=== PATIENT | male | born 1955 | race Asian ===

== ENCOUNTER 2020-02-08 09:43 | Emergency (ER) | payer OTHER, SELFPAY ==
--- NOTE | 2020-02-08 | ECG_ITS ---
Test Reason : NAUSEA/VOMITING Blood Pressure : / mmHG Vent. Rate : 059 BPM Atrial Rate : 059 BPM P-R Int : 136 ms QRS Dur : 092 ms QT Int : 416 ms P-R-T Axes : 058 066 004 degrees QTc Int : 411 ms Sinus bradycardia Nonspecific ST abnormality Abnormal ECG No previous ECGs available Referred By: Janell Garcia Electronically Signed By:George Braga
--- NOTE | 2020-02-08 10:47 | ED_ITS ---
HPI - Nausea/Vomiting/Diarrhea General Time Seen by Provider: 02/08/20 10:47 Source: patient and EMS Mode of arrival: EMS Limitations: no limitations History of Present Illness MD elicited complaint: nausea, vomiting and diarrhea Onset (ago): day(s) (last night) Description of vomiting: food contents and watery Description of diarrhea: watery Associated nausea: Yes Associated abdominal pain: No Pain consistency: constant Severity: similar to previous episodes Exacerbating factors: none Relieving factors: none Context: other (started Prep to prevent HIV transmission after taking dose started with n/v/d has hx of sensitivity to meds in the past) Associated symptoms: denies other symptoms Treatment prior to arrival: other (EMS gave zofran) Related Data Previous Rx's Medication Instructions Recorded ondansetron 4 mg PO Q8H PRN #20 tab 02/08/20 promethazine 25 mg MD Q6H PRN #12 ea 02/08/20 Allergies Allergy/AdvReac Type Severity Reaction Status Date / Time diclofenac [DICLOFENAC] Allergy Unknown STOMACH Unverified 11/10/19 15:03 PAIN Review of Systems Review of Systems: Constitutional : No Weight loss, No Fever, No Chills ENT/Mouth : No sore throat, No Rhinorrhea Eyes: No Swelling, No Redness Cardiovascular : No Chest Pain, No SOB, NoEdema Respiratory : No Cough, No Sputum, No Wheezing Gastrointestinal : Positive Nausea, Positive Vomiting, positive Diarrhea, no abdominal Pain, No Hematochezia, No Melena Genitourinary : No Dysuria, No Urinary Frequency, No Hematuria, No Urgency Musculoskeletal : No joint pain, No Myalgias, No Joint Swelling Skin : No Skin Lesions, No rash Neuro : No Weakness, No Numbness, No Dizziness, No Headache Psych : No Anxiety/Panic, No Depression Heme/Lymph: No Bruising, No Lymphadenopathy Endocrine : No Polyuria, No Polydipsia All other systems reviewed and are negative. Gastrointestinal: Gastrointestinal: Reports nausea PMFSH Past Medical History Attestation statement: The following information was validated with the patient. Medical History (Updated 02/08/20 @ 12:45 by Janell Garcia DO) GERD (gastroesophageal reflux disease) HTN (hypertension) Hyperlipidemia Social History Social History (Updated 02/08/20 @ 10:49 by Janell Garcia DO) Smoking Status: Never smoker Use of substances other than those prescribed or required for medical reasons: No Advance Directives: No Advance Directives Information Provided: Yes Physical Exam Vital Signs: Vital Signs: Last Vital Signs Pulse 85 02/08/20 12:24 Resp 16 02/08/20 12:24 BP 140/78 H 02/08/20 12:24 Pulse Ox 95 02/08/20 12:24 Appearance: Alert. Oriented X3. No acute distress. Eyes: Pupils equal, round and reactive to light. ENT: Pharynx normal. Neck: Normal inspection. Neck supple. CVS: Normal heart rate and rhythm. Pulses normal. Respiratory: No respiratory distress. Breath sounds normal. Abdomen: Soft and nontender. Skin: Skin warm and dry. Normal skin color. Normal skin turgor. Extremities: No lower extremity edema. No calf ttp Neuro: Oriented X 3. No motor deficit. No sensory deficit. Course Course Course Narrative: feels better, VS and labs stable, can be DC at this time MDM - Nausea/Vomiting/Diarrhea MDM Narrative Medical decision making narrative: 65 yo male started himself on Prep to prevent HIV transmission after taking his first dose developed n/v/d no pain, hx of similar sensitivities in the past, will need labs, IVF, IV antiemetics, dispo per results and findings. Lab Data Result diagrams: 02/08/20 10:35 02/08/20 10:35 Labs: Lab Results 02/08/20 02/08/20 02/08/20 Range/Units 10:35 10:35 10:35 WBC 8.5 (4.8-10.8) X10*3/uL RBC 4.74 (4.60-5.80) X10*6/uL Hgb 14.5 (14.0-18.0) g/dl Hct 42.5 (42-52) % MCV 89.7 (80-98) fL MCH 30.6 (27.0-33.0) pg MCHC 34.1 (31.0-36.0) g/dl RDW 12.7 (11.0-16.0) % Plt Count 200 (160-400) X10*3/uL MPV 10.5 (9.4-12.4) fL Immature Gran % (Auto) 0.4 (0.0-0.4) % Neut % (Auto) 88.0 H (45-73) % Lymph % (Auto) 8.0 L (20-40) % Trinity % (Auto) 2.9 (2-11) % Eos % (Auto) 0.2 (0-4) % Baso % (Auto) 0.5 (0-2) % Lymph # (Auto) 0.7 L (1.2-4.9) X10*3/uL Trinity # (Auto) 0.3 (0.1-1.2) X10*3/uL Eos # (Auto) 0.0 (0.0-0.4) X10*3/uL Baso # (Auto) 0.0 (0.0-0.2) X10*3/uL Abs Immat Gran (auto) 0.03 (0.00-0.03) X10*3/uL Absolute Neuts (auto) 7.5 (2.0-8.3) X10*3/uL Absolute Nucleated RBC 0.000 (0.0-0.012) X10*3/uL Nucleated RBC % (auto) 0.0 (0.0-0.2) /100WBC Smear Tech's Comments VERIFIED PT (10.8-13.0) SEC INR (0.9-1.1) APTT (24.1-38.0) SEC Sodium 140 (135-145) mmol/L Potassium 4.1 (3.3-5.1) mmol/l Chloride 106 (96-108) mmol/L Carbon Dioxide 27 (22-29) mmol/L Anion Gap 11 L (12-20) BUN 17 H (9-16) mg/dL Creatinine 0.80 (0.5-1.4) mg/dL Estim Creat Clear Calc TNP Estimated GFR > 60 Random Glucose 149 H (60-115) mg/dL Calcium 8.6 (8.4-10.2) mg/dL Total Bilirubin 0.8 (0.0-1.0) mg/dL Direct Bilirubin 0.3 (0.0-0.5) mg/dL AST 18 (5-37) U/L ALT 20 (0-40) U/L Alkaline Phosphatase 57 (39-117) U/L Total Protein 6.2 L (6.5-8.0) g/dL Albumin 4.3 (3.5-5.0) g/dL Lipoprotein (a) Cancelled Lipase 17 (8-78) U/L /16/20 Range/Units 10:35 WBC (4.8-10.8) X10*3/uL RBC (4.60-5.80) X10*6/uL Hgb (14.0-18.0) g/dl Hct (42-52) % MCV (80-98) fL MCH (27.0-33.0) pg MCHC (31.0-36.0) g/dl RDW (11.0-16.0) % Plt Count (160-400) X10*3/uL MPV (9.4-12.4) fL Immature Gran % (Auto) (0.0-0.4) % Neut % (Auto) (45-73) % Lymph % (Auto) (20-40) % Trinity % (Auto) (2-11) % Eos % (Auto) (0-4) % Baso % (Auto) (0-2) % Lymph # (Auto) (1.2-4.9) X10*3/uL Trinity # (Auto) (0.1-1.2) X10*3/uL Eos # (Auto) (0.0-0.4) X10*3/uL Baso # (Auto) (0.0-0.2) X10*3/uL Abs Immat Gran (auto) (0.00-0.03) X10*3/uL Absolute Neuts (auto) (2.0-8.3) X10*3/uL Absolute Nucleated RBC (0.0-0.012) X10*3/uL Nucleated RBC % (auto) (0.0-0.2) /100WBC Smear Tech's Comments PT 11.7 (10.8-13.0) SEC INR 1.0 (0.9-1.1) APTT 25.6 (24.1-38.0) SEC Sodium (135-145) mmol/L Potassium (3.3-5.1) mmol/l Chloride (96-108) mmol/L Carbon Dioxide (22-29) mmol/L Anion Gap (12-20) BUN (9-16) mg/dL Creatinine (0.5-1.4) mg/dL Estim Creat Clear Calc Estimated GFR Random Glucose (60-115) mg/dL Calcium (8.4-10.2) mg/dL Total Bilirubin (0.0-1.0) mg/dL Direct Bilirubin (0.0-0.5) mg/dL AST (5-37) U/L ALT (0-40) U/L Alkaline Phosphatase (39-117) U/L Total Protein (6.5-8.0) g/dL Albumin (3.5-5.0) g/dL Lipoprotein (a) Lipase (8-78) U/L ECG Data Attestation: I personally reviewed and interpreted this ECG as follows: ECG interpretation date: 02/08/20 ECG interpretation time: 10:52 Interpretation: Rate: 59 Rhythm: sinus bradycardia [place] [facility]: normal Normal P waves. Normal KIMANI. Normal QRS complex. ST T wave : nonspecific, no SERENE qTC: normal prior studies: no acute ischemia The study has been interpreted contemporaneously by me. . Discharge Plan Discharge Clinical Impression: Vomiting and diarrhea Patient Disposition: Home, Self-Care Instructions: Acute Nausea and Vomiting (ED), Acute Diarrhea (ED) Additional Instructions: return to ED for any worsening symptoms or concerns STOP taking PREP please talk to your doctor first Prescriptions: New promethazine 25 mg suppository 25 mg MD Q6H PRN (Reason: nausea and vomiting) Qty: 12 RF: 0 ondansetron 4 mg tablet,disintegrating 4 mg PO Q8H PRN (Reason: nausea and vomiting) Qty: 20 RF: 0 Referrals: Physician,Unknown [Primary Care Provider] - 1 day
--- NOTE | 2020-02-08 11:05 | PC.NURSE ---
pt was seen and treated during Expanse down time. Please see paper documentation for treatment details.
[2020-02-08 11:09] LABS: Basophils Percent Auto 0.5 % (0-2); Eosinophils Percent Auto 0.2 % (0-4); Hematocrit 42.5 % (42-52); Hemoglobin 14.5 g/dl (14.0-18.0); Imm Gran Abs Auto 0.03 X10*3/uL (0.00-0.03); Imm Gran Pct Auto 0.4 % (0.0-0.4); Lymphocytes Absolute Auto 0.7 X10*3/uL (1.2-4.9); MANUAL DIFF FLAG SCAN; Mean Corpuscular HGB Conc 34.1 g/dl (31.0-36.0); Mean Corpuscular Hemoglobin 30.6 pg (27.0-33.0); Mean Corpuscular Volume 89.7 fL (80-98); Mean Platelet Volume 10.5 fL (9.4-12.4); Monocytes Absolute Auto 0.3 X10*3/uL (0.1-1.2); Monocytes Percent Auto 2.9 % (2-11); Neutrophils Absolute Auto 7.5 X10*3/uL (2.0-8.3); Platelet Count 200 X10*3/uL (160-400); Red Blood Count 4.74 X10*6/uL (4.60-5.80); Red Cell Distribution Width 12.7 % (11.0-16.0); SCAN SMEAR FLAG 1; White Blood Count 8.5 X10*3/uL (4.8-10.8)
[2020-02-08 11:18] LABS: Prothrombin Time 11.7 SEC (10.8-13.0)
[2020-02-08 11:21] LABS: Partial Thromboplastin Time 25.6 SEC (24.1-38.0)
[2020-02-08 11:35] LABS: Alanine Aminotransferase 20 U/L (0-40); Albumin Level 4.3 g/dL (3.5-5.0); Alkaline Phosphatase 57 U/L (39-117); Anion Gap 11 (12-20); Aspartate Amino Transferase 18 U/L (5-37); Bilirubin Direct 0.3 mg/dL (0.0-0.5); Bilirubin Total 0.8 mg/dL (0.0-1.0); Blood Urea Nitrogen 17 mg/dL (9-16); Calcium 8.6 mg/dL (8.4-10.2); Carbon Dioxide 27 mmol/L (22-29); Chloride 106 mmol/L (96-108); Estimated Glomerular Filt Rate > 60; Glucose Random 149 mg/dL (60-115); Lipase 17 U/L (8-78); Potassium 4.1 mmol/l (3.3-5.1); Sodium 140 mmol/L (135-145); Total Protein 6.2 g/dL (6.5-8.0)
[2020-02-08 11:57] LABS: SLIDE REVIEW VERIFIED
[2020-02-08 12:24] VITALS: BP 140/78; PULSE 85; RESP 16; O2SAT 95
--- NOTE | 2020-02-08 12:25 | PC.NURSE ---
pt resting quietly, states nausea has improved. Tolerating PO fluid.
[2020-02-08 13:18] VITALS: BP 158/108; PULSE 87; RESP 16; O2SAT 100
--- NOTE | 2020-02-08 13:24 | PC.NURSE ---
pt states nausea is well controlled, he has been resting quietly in no distress.
[2020-02-09 08:53] VITALS: BMI 30.1
== END 2020-02-08 13:24 | disposition home or self-care (01) ==
PROVIDERS: Emergency Provider Emergency Medicine
DX: R11.2 Nausea with vomiting, unspecified (principal); R19.7 Diarrhea, unspecified; I10 Essential (primary) hypertension
CPT/HCPCS: 36415; 80048; 80076; 83690; 85025; 85610; 85730; 87086; 93005; 99281; 99283

== ENCOUNTER 2021-05-31 08:22 | Day surgery (SDC) | payer MEDICARE, MEDICAID, SELFPAY ==
[2021-05-27 11:07] VITALS: BMI 23.8
--- NOTE | 2021-05-30 10:58 | HO.ANESPROP2 ---
Documented by User: Maria Esther Ruiz NP 05/30/21 10:58 HPI - Anesthesia Eval Consult details Narrative: 66yo M for ?Upper Endoscopy [facility] Past Medical History Medical History (Updated 05/27/21 @ 11:03 by Robina Gonzalez RN) Anxiety GERD (gastroesophageal reflux disease) HTN (hypertension) Hyperlipidemia Surgical History Surgical History (Updated 05/27/21 @ 11:03 by Robina Gonzalez RN) H/O colonoscopy History of ear surgery History of esophagogastroduodenoscopy (EGD) Hx of varicose vein ligation and stripping Social History Social History (Updated 02/08/20 @ 10:49 by Janell Garcia DO) Patient Tobacco Use Status: Never used Tobacco Use of substances other than those prescribed or required for medical reasons: No Are you DNR?: No Advance Directives: No Advance Directives Information Provided: Yes Recently lost weight without trying: No How much weight loss: 14-23 pounds Nutrition Risks: No Nutritional Risk Meds Allergies Allergy/AdvReac Type Severity Reaction Status Date / Time diclofenac [DICLOFENAC] Allergy Unknown STOMACH Verified 05/31/21 08:36 PAIN Home Medications Medication Instructions Recorded Confirmed Last Taken Type amlodipine 5 mg tablet 1 tab PO DAILY 05/27/21 05/27/21 05/31/21 History atenolol 50 mg tablet 1 tab PO DAILY 05/27/21 05/27/21 05/31/21 History lisinopril 20 mg tablet 1 tab PO QAM 05/27/21 05/27/21 Unknown History pantoprazole 40 mg tablet,delayed 1 tab PO DAILY 05/27/21 05/27/21 Unknown History release Exam Exam Date and Time: May 30, 2021 1058 Height,Weight and Vital Signs: Height 5 ft 10.5 in Weight 76.204 kg Assessment and Plan Assessment Anesthesia Assessment: Chart Reviewed Documented by User: Reymundo Blake MD 05/31/21 09:56 HPI - Anesthesia Eval Consult details Narrative: 66yo M for ?Upper Endoscopy occasional nausea PMFSH Past Medical History Medical History (Updated 05/27/21 @ 11:03 by Robina Gonzalez RN) Anxiety GERD (gastroesophageal reflux disease) HTN (hypertension) Hyperlipidemia Functional capacity: independent ambulation Family History Family history of problems with anesthesia: No Surgical History Surgical History (Updated 05/27/21 @ 11:03 by Robina Gonzalez RN) H/O colonoscopy History of ear surgery History of esophagogastroduodenoscopy (EGD) Hx of varicose vein ligation and stripping History of Problems with Anesthesia: No Social History Social History (Updated 02/08/20 @ 10:49 by Janell Garcia DO) Patient Tobacco Use Status: Never used Tobacco Use of substances other than those prescribed or required for medical reasons: No Are you DNR?: No Advance Directives: No Advance Directives Information Provided: Yes Recently lost weight without trying: No How much weight loss: 14-23 pounds Nutrition Risks: No Nutritional Risk Meds Allergies Allergy/AdvReac Type Severity Reaction Status Date / Time diclofenac [DICLOFENAC] Allergy Unknown STOMACH Verified 05/31/21 08:36 PAIN Home Medications Medication Instructions Recorded Confirmed Last Taken Type amlodipine 5 mg tablet 1 tab PO DAILY 05/27/21 05/27/21 05/31/21 History atenolol 50 mg tablet 1 tab PO DAILY 05/27/21 05/27/21 05/31/21 History lisinopril 20 mg tablet 1 tab PO QAM 05/27/21 05/27/21 Unknown History pantoprazole 40 mg tablet,delayed 1 tab PO DAILY 05/27/21 05/27/21 Unknown History release Exam Airway Mallampati Class: II TM Dist: >3cm Partial: Upper Loose/Missing/Broken Teeth: Yes Heart: RRR Lungs: B/L breath sounds Assessment and Plan Assessment Anesthesia Assessment: Anesthesia Plan Discussed Final Anesthetic Review Family History of Problems with Anesthesia: No History of Problems with Anesthesia: No NPO: Yes ASA Class: II Final Preanesthetic Review: Meds/Allgs Chart Reviewed, Consent Obtained/Reviewed and Anes Risks/Benef Reviewed Patient Risk: Intermediate Procedure Risk: Intermediate Anesthetic Plan Anesthetic Plan: MAC: Disposition: Standard PACU
[2021-05-31 08:31] VITALS: BMI 23.3
[2021-05-31 08:41] VITALS: BP 143/77; PULSE 61; RESP 16; TEMP 36.4; O2SAT 95
[2021-05-31] MEDS: Lactated Ringers 1,000 ML 100 ML IVCONT (08:50)
--- NOTE | 2021-05-31 09:48 | MHC.SHP ---
Pre-Procedural Eval Section A Date of Service: 05/31/21 Section B Chief Complaint: Acute Gastritis, Abnormal findings Details of Present Illness: see holder nd p no chnges Relevant Family History (Specify if Yes): No Relevant Social History: None Present Medications: None Medical History: No relevant PMH History of Previous Operations: No relevant previous surgery Allergies: Allergies Allergy/AdvReac Type Severity Reaction Status Date / Time diclofenac [DICLOFENAC] Allergy Unknown STOMACH Verified 05/31/21 08:36 PAIN Review of Systems Sugical H&P ROS: Negative: Constitution, Cardiovascular, Respiratory, Neurological, Psychiatric, Hem-Onc, Allergic/Immunologic, Gastrointestinal, Genitourinary, Musculoskeletal, Integumentary, Endocrine and Eyes/Ears/Nose/Throat Exam Surgical H&P Exam: Normal: HEENT, Normal: Heart, Normal: Lungs, Normal: Extremities, Normal: Abdomen, Normal: Skin and Normal: Neurological Plan I have reviewed the history and physical and performed a pertinent physical examination on my patient. No changes have occurred unless specified.
[2021-05-31 10:12] VITALS: BP 82/42; PULSE 56; RESP 16; TEMP 36.7; O2SAT 94
--- NOTE | 2021-05-31 10:18 | PM.OP ---
Brief Operative Note Date of Service: 05/31/21 Pre-op diagnosis: abnl ct scan Post-op diagnosis: same Procedure: egd Surgeon: Estevan Garcia Anesthesia: MAC Was an Senior Financial Analyst used for this Procedure?: No Estimated blood loss (mL): 2 Pathology: other Condition: stable Disposition: PACU
[2021-05-31 10:27] VITALS: BP 125/78; PULSE 52; RESP 18; TEMP 36.3; O2SAT 96
--- NOTE | 2021-05-31 11:17 | OP_ITS ---
SURGEON: Estevan Garcia MD INDICATIONS: Abnormal CT scan of the stomach. PREOPERATIVE DIAGNOSIS: POSTOPERATIVE DIAGNOSIS: PROCEDURE PERFORMED: Upper endoscopy with biopsy. ESTIMATED BLOOD LOSS: COMPLICATIONS: ANESTHESIA: Monitored anesthesia care. ASSISTANTS: SPECIMENS: DESCRIPTION OF PROCEDURE: History and physical performed. The risks and benefits of the procedure were explained to the patient. Informed consent was obtained. The patient was placed in the left lateral decubitus position. The Olympus video gastroscope was introduced into the esophagus, stomach, and duodenum. Examination was performed. The scope was removed. He tolerated the procedure well and was taken to recovery in stable condition. FINDINGS: Esophagus: The esophagus was normal. The EG junction was irregular. This was biopsied. Stomach: Showed no ulcers or mass lesions. Biopsies were obtained from the fundus where the mucosa appeared normal. Biopsies were also obtained from the antrum. Duodenum: The bulb and second portion were normal. IMPRESSION: Normal upper endoscopy. RECOMMENDATION: Follow up the biopsy results. MD NAHEED Goldstein/MODL / [id number] MTDD
== END 2021-05-31 11:50 | disposition home or self-care (01) ==
PROVIDERS: PCP Internal Medicine; Visit Provider Internal Medicine Gastroenterology
PROC: 0DJ08ZZ Inspection of Upper Intestinal Tract, Via Natural or Artificial Opening Endoscopic (ICD-10-PCS; CPT 43235; principal; 2021-05-31 09:40)
DX: K29.50 Unspecified chronic gastritis without bleeding (principal); I10 Essential (primary) hypertension; E78.5 Hyperlipidemia, unspecified; F41.1 Generalized anxiety disorder; Z79.899 Other long term (current) drug therapy
CPT/HCPCS: 43239; 88305; 88342; J3010

== ENCOUNTER 2022-02-21 13:55 | Outpatient (REF) | payer MEDICARE, MEDICAID, SELFPAY | END 2022-02-21 13:56 | disposition home or self-care (01) | LOC: HO.SH 13:55 | PROVIDERS: Visit Provider Family Medicine | DX: Z01.118 Encounter for examination of ears and hearing with other abnormal findings (principal); H90.6 Mixed conductive and sensorineural hearing loss, bilateral; H69.93 Unspecified Eustachian tube disorder, bilateral | CPT/HCPCS: 92557; 92567 ==

== ENCOUNTER 2022-03-10 07:59 | Outpatient (REF) | payer MEDICARE, MEDICAID, SELFPAY ==
--- NOTE | ~2022-03-10 | US_ITS ---
EXAMINATION: US ABDOMEN COMPLETE CLINICAL INFORMATION: Epigastric pain. COMPARISON: CT abdomen and pelvis with contrast 01/05/2017. TECHNIQUE: Real-time imaging of the abdominal viscera. FINDINGS: PANCREAS: Normal. ABDOMINAL AORTA: The proximal abdominal aorta is normal caliber. The mid and distal abdominal aorta is not seen. INFERIOR VENA CAVA: Visualized portions are normal. LIVER: The liver is normal in size. The liver contour is normal. Parenchymal echogenicity is normal. There are 3 anechoic cysts with the largest cyst right hepatic lobe measures 0.9 x 1.10 x 1.2 cm. There is no intrahepatic biliary duct dilatation seen. GALLBLADDER: There are small nonmobile echogenic lesions along the inner gallbladder wall suggestive of polyps. The gallbladder is physiologically distended without evidence of stones, sludge, wall thickening or pericholecystic fluid. COMMON BILE DUCT: Normal in caliber measuring 0.7 cm in diameter. RIGHT KIDNEY: There are numerous cysts in the right kidney. The largest in the midpole measures 1.5 x 1.1 x 1.2 cm. No hydronephrosis or renal calculi. The kidney measures 12.3 cm in maximum dimension. LEFT KIDNEY: There are punctate echogenic foci in lower pole measuring 0.2 x 0.1 x 0.26 cm. There are numerous cysts seen. Largest measuring 1.3 x 0.6 x 0.6 cm in midpole. No hydronephrosis or renal calculi. The kidney measures 10.5 cm in maximum dimension. SPLEEN: Normal. The spleen measures 12.2 cm in maximum dimension. FREE FLUID: None. US/US abdomen complete IMPRESSION: 1. Bilateral renal cysts. No echogenic stones or hydronephrosis. 2. Multiple hepatic cysts. 3. Small gallbladder polyps. 4. Rest of the abdominal ultrasound is unremarkable.
[2022-03-10 09:12] LABS: Hematocrit 43.2 % (42.0-52.0); Hemoglobin 14.1 g/dl (14.0-18.0); Mean Corpuscular HGB Conc 32.6 g/dl (31.0-36.0); Mean Corpuscular Hemoglobin 28.2 pg (27.0-33.0); Mean Corpuscular Volume 86.4 fL (80.0-98.0); Mean Platelet Volume 10.2 fL (9.4-12.4); Platelet Count 203 X10*3/uL (160-400); Red Cell Distribution Width 14.3 % (11.0-16.0); White Blood Count 6.9 X10*3/uL (4.8-10.8)
[2022-03-10 09:32] LABS: Alanine Aminotransferase 28 U/L (0-40); Albumin Level 4.2 g/dL (3.5-5.0); Alkaline Phosphatase 66 U/L (39-117); Aspartate Amino Transferase 20 U/L (5-37); Bilirubin Direct 0.2 mg/dL (0.0-0.5); Bilirubin Total 0.5 mg/dL (0.0-1.0); Lipase 27 U/L (8-78); Total Protein 6.2 g/dL (6.5-8.0)
== END 2022-03-10 08:00 | disposition home or self-care (01) ==
LOC: HO.US 07:59
PROVIDERS: Visit Provider Internal Medicine Gastroenterology
DX: R10.13 Epigastric pain (principal)
CPT/HCPCS: 36415; 76700; 80076; 83690; 85027

== ENCOUNTER 2022-03-19 16:53 | Day surgery (SDC) | payer MEDICARE, MEDICAID, SELFPAY ==
[2022-03-19 12:03] VITALS: BP 126/86; PULSE 61; RESP 16; TEMP 36.6; O2SAT 96; BMI 23.6
--- NOTE | 2022-03-19 12:21 | P.CONAN_ITS ---
[facility] Past Medical History Medical History (Updated 05/27/21 @ 11:03 by Robina Gonzalez RN) Anxiety GERD (gastroesophageal reflux disease) HTN (hypertension) Hyperlipidemia Family History Family history of problems with anesthesia: No Surgical History Surgical History (Updated 05/27/21 @ 11:03 by Robina Gonzalez RN) H/O colonoscopy History of ear surgery History of esophagogastroduodenoscopy (EGD) Hx of varicose vein ligation and stripping History of Problems with Anesthesia: No Social History Social History (Updated 02/08/20 @ 10:49 by Tash Garcia DO) Patient Tobacco Use Status: Never used Tobacco Meds Allergies Allergy/AdvReac Type Severity Reaction Status Date / Time diclofenac [DICLOFENAC] Allergy Unknown STOMACH Verified 05/31/21 08:36 PAIN Home Medications Medication Instructions Recorded Confirmed Last Taken Type amlodipine 5 mg tablet 1 tab PO DAILY 05/27/21 03/19/22 05/31/21 History atenolol 50 mg tablet 1 tab PO DAILY 05/27/21 03/19/22 05/31/21 History lisinopril 20 mg tablet 1 tab PO QAM 05/27/21 03/19/22 Unknown History pantoprazole 40 mg tablet,delayed 1 tab PO DAILY 05/27/21 03/19/22 Unknown History release sucralfate 1 gram tablet 1 tab PO TID 03/18/22 03/19/22 Unknown History tadalafil 10 mg tablet 1 tab PO DAILY 03/18/22 03/19/22 Unknown History Exam Exam Date and Time: March 19, 2022 1221 Height,Weight and Vital Signs: Height 5 ft 10 in Weight 74.843 kg Last Vital Signs Temp 97.8 F 03/19/22 12:03 Pulse 61 03/19/22 12:03 Resp 16 03/19/22 12:03 BP 126/86 03/19/22 12:03 Pulse Ox 96 03/19/22 12:03 O2 Del Method 03/19/22 12:03 Airway Mallampati Class: II TM Dist: >3cm Denture: Upper Heart: rrr Lungs: cta Assessment and Plan Assessment Anesthesia Assessment: Anesthesia Plan Discussed Final Anesthetic Review Family History of Problems with Anesthesia: No History of Problems with Anesthesia: No NPO: Yes ASA Class: II Final Preanesthetic Review: No Changes in Pt Med Stat, Meds/Allgs Chart Reviewed, Consent Obtained/Reviewed and Anes Risks/Benef Reviewed Patient Risk: Low Procedure Risk: Low Anesthetic Plan Anesthetic Plan: MAC: and Agree w/ Assess. and Plan Disposition: Standard PACU
[2022-03-19] MEDS: Lactated Ringers 1,000 ML 100 ML IVCONT (12:32)
--- NOTE | 2022-03-19 12:54 | MHC.SHP ---
Pre-Procedural Eval Section A Date of Service: 03/19/22 The patient is an INPATIENT: No Changes since office visit: No Cold of Flu in the past 2 weeks, No New Medical Problems, No Changes in Medication and No Patient answered all questions The History & Physical has been completed within 30 days and I have reviewed it.: Yes Section B Chief Complaint: screening Allergies: Allergies Allergy/AdvReac Type Severity Reaction Status Date / Time diclofenac [DICLOFENAC] Allergy Unknown STOMACH Verified 05/31/21 08:36 PAIN Plan I have reviewed the history and physical and performed a pertinent physical examination on my patient. No changes have occurred unless specified. Time Spent With Patient Time: Total time managing care of this patient today ____ minutes.
--- NOTE | 2022-03-19 13:21 | P.BOP_ITS ---
Brief Operative Note Date of Service: 03/19/22 Pre-op diagnosis: screening Post-op diagnosis: same Procedure: colonoscopy Surgeon: Estevan Garcia Anesthesia: MAC Was an Power Electronics Research Engineer used for this Procedure?: No Estimated blood loss (mL): 5 Pathology: other Condition: stable Disposition: PACU
[2022-03-19 13:26] VITALS: BP 103/72; PULSE 66; RESP 18; TEMP 36.3; O2SAT 95
[2022-03-19 13:41] VITALS: BP 135/88; PULSE 67; RESP 16; TEMP 36.6; O2SAT 96
--- NOTE | 2022-03-20 00:31 | OP_ITS ---
SURGEON: Estevan Garcia MD INDICATIONS: Colon cancer screening and prior history of adenomatous colon polyps. PREOPERATIVE DIAGNOSIS: POSTOPERATIVE DIAGNOSIS: PROCEDURE PERFORMED: Colonoscopy to the terminal ileum with biopsy. ESTIMATED BLOOD LOSS: COMPLICATIONS: ANESTHESIA: Monitored anesthesia care. ASSISTANTS: SPECIMENS: DESCRIPTION OF PROCEDURE: The procedure was performed on 03/19/2022. The history and physical were performed. The risks and benefits of the procedure were explained to the patient. Informed consent was obtained. The patient was placed in the left lateral decubitus position. A digital rectal exam was performed and showed decreased anal sphincter tone. The Olympus pediatric video colonoscope was introduced into the rectum and advanced to the cecum without difficulty. The cecum was identified by transillumination, palpation, and identification of ileocecal valve. Examination was performed. The scope was removed. He tolerated the procedure well, and returned to recovery area in stable condition. FINDINGS: The terminal ileum was examined and appeared normal. The visualized colonic mucosa was normal. Two polyps were identified and removed with the biopsy forceps. These were less than 5 mm. The first was located at 40 cm. The second was located in the rectum. On retroflexed view, there appeared to be at least one area consistent with anal condyloma. This was biopsied and measured approximately 7 mm to 10 mm. No other polyps were seen. There were hemorrhoids externally and internally. Quality of the prep was good. IMPRESSION: 1. Colon polyps. 2. Rule out anal condyloma. MD NAHEED Goldstein/EVELIA / [id number]
== END 2022-03-19 17:00 | disposition home or self-care (01) ==
LOC: HO.SSS 16:53
PROVIDERS: PCP Hospitalist; Visit Provider Internal Medicine Gastroenterology
PROC: 0DJD8ZZ Inspection of Lower Intestinal Tract, Via Natural or Artificial Opening Endoscopic (ICD-10-PCS; CPT 45378; principal; 2022-03-19 13:00)
DX: Z12.11 Encounter for screening for malignant neoplasm of colon (principal); Z86.010 Personal history of colon polyps; D12.8 Benign neoplasm of rectum; K63.5 Polyp of colon; K62.82 Dysplasia of anus; K64.8 Other hemorrhoids; K64.4 Residual hemorrhoidal skin tags; I10 Essential (primary) hypertension; K21.9 Gastro-esophageal reflux disease without esophagitis; E78.5 Hyperlipidemia, unspecified; F41.1 Generalized anxiety disorder; Z79.899 Other long term (current) drug therapy; Z88.8 Allergy status to other drugs, medicaments and biological substances
CPT/HCPCS: 45380; 88305; 88342

== ENCOUNTER → 2022-04-02 10:55 | Outpatient (BNVA) | payer MEDICARE, MEDICAID, SELFPAY | PROVIDERS: PCP Hospitalist; Referring Provider Internal Medicine Gastroenterology; Visit Provider Surgery | DX: A63.0 Anogenital (venereal) warts (principal) | CPT/HCPCS: 46600; 99202 ==

== ENCOUNTER 2022-05-02 09:04 | Day surgery (SDC) | payer MEDICARE, MEDICAID, SELFPAY ==
[2022-04-29 15:26] VITALS: BMI 25.0
--- NOTE | 2022-05-01 11:55 | HO.ANESPROP2 ---
Documented by User: Maria Esther Ruiz NP 05/01/22 11:56 HPI - Anesthesia Eval Consult details Narrative: 67yo M for Excision Lesion Anal polyp s/p colonoscopy 02/2022 with MAC PMFSH Active Problems Active Problems: All Active Problems (Updated 04/02/22 @ 15:49 by Denzel Cortes MD) Condyloma acuminata (Acute) Past Medical History Medical History Anxiety Condyloma acuminata GERD (gastroesophageal reflux disease) HTN (hypertension) Hyperlipidemia Family History Family history of problems with anesthesia: No Surgical History Surgical History H/O colonoscopy H/O hemorrhoidectomy History of ear surgery History of esophagogastroduodenoscopy (EGD) Hx of varicose vein ligation and stripping History of Problems with Anesthesia: No Social History Social History Patient Tobacco Use Status: Never used Tobacco Use of substances other than those prescribed or required for medical reasons: No Substance Use Type Other:: edibles Substance Use Frequency: Occasionally Are you DNR?: No Advance Directives: No Advance Directives Information Provided: Yes Meds Allergies Allergy/AdvReac Type Severity Reaction Status Date / Time diclofenac [DICLOFENAC] Allergy Unknown STOMACH Verified 05/02/22 10:36 PAIN Home Medications Medication Instructions Recorded Confirmed Last Taken Type amlodipine 5 mg tablet 1 tab PO DAILY 05/27/21 05/02/22 05/02/22 07:00 History atenolol 50 mg tablet 1 tab PO DAILY 05/27/21 05/02/22 05/02/22 07:00 History lisinopril 20 mg tablet 1 tab PO QAM 05/27/21 05/02/22 05/02/22 07:00 History pantoprazole 40 mg tablet,delayed 1 tab PO DAILY 05/27/21 05/02/22 05/02/22 07:00 History release sucralfate 1 gram tablet 1 tab PO TID 03/18/22 05/02/22 Unknown History tadalafil 10 mg tablet 1 tab PO DAILY 03/18/22 05/02/22 Unknown History Exam Exam Date and Time: May 01, 2022 1155 Height,Weight and Vital Signs: Height 5 ft 10 in Weight 78.925 kg Pertinent Lab Results Pertinent Lab Results: Laboratory Tests 03/10/22 08:51 WBC 6.9 Hgb 14.1 Hct 43.2 Plt Count 203 Assessment and Plan Assessment Anesthesia Assessment: Chart Reviewed Final Anesthetic Review Family History of Problems with Anesthesia: No History of Problems with Anesthesia: No Documented by User: Palma Celis MD 05/02/22 10:51 PMFSH Past Medical History Medical History Anxiety Condyloma acuminata GERD (gastroesophageal reflux disease) HTN (hypertension) Hyperlipidemia Surgical History Surgical History H/O colonoscopy H/O hemorrhoidectomy History of ear surgery History of esophagogastroduodenoscopy (EGD) Hx of varicose vein ligation and stripping Social History Social History Patient Tobacco Use Status: Never used Tobacco Use of substances other than those prescribed or required for medical reasons: No Substance Use Type Other:: edibles Substance Use Frequency: Occasionally Are you DNR?: No Advance Directives: No Advance Directives Information Provided: Yes Meds Allergies Allergy/AdvReac Type Severity Reaction Status Date / Time diclofenac [DICLOFENAC] Allergy Unknown STOMACH Verified 05/02/22 10:36 PAIN Home Medications Medication Instructions Recorded Confirmed Last Taken Type amlodipine 5 mg tablet 1 tab PO DAILY 05/27/21 05/02/22 05/02/22 07:00 History atenolol 50 mg tablet 1 tab PO DAILY 05/27/21 05/02/22 05/02/22 07:00 History lisinopril 20 mg tablet 1 tab PO QAM 05/27/21 05/02/22 05/02/22 07:00 History pantoprazole 40 mg tablet,delayed 1 tab PO DAILY 05/27/21 05/02/22 05/02/22 07:00 History release sucralfate 1 gram tablet 1 tab PO TID 03/18/22 05/02/22 Unknown History tadalafil 10 mg tablet 1 tab PO DAILY 03/18/22 05/02/22 Unknown History Exam Height,Weight and Vital Signs: Height 5 ft 10 in Weight 78.925 kg Vital Signs Temp Pulse Resp BP Pulse Ox O2 Del Method 05/02/22 09:36 97.2 F 64 16 134/82 96 Room Air Airway Mallampati Class: II TM Dist: >3cm Neck ROM: Full Partial: Upper Loose/Missing/Broken Teeth: Yes (Some missing top and bottom. Denies broken or loose teeth) Heart: RRR Lungs: CTAB Assessment and Plan Assessment Anesthesia Assessment: Anesthesia Plan Discussed Final Anesthetic Review NPO: Yes ASA Class: II Final Preanesthetic Review: No Changes in Pt Med Stat, Meds/Allgs Chart Reviewed, Consent Obtained/Reviewed and Anes Risks/Benef Reviewed Patient Risk: Low Procedure Risk: Low Assessment/Block/Sedation in SS: Assess/Block/Sedation-SS Anesthetic Plan Anesthetic Plan: GA Disposition: Standard PACU
[2022-05-02 09:36] VITALS: BP 134/82; PULSE 64; RESP 16; TEMP 36.2; O2SAT 96
--- NOTE | 2022-05-02 10:40 | MHC.SHP ---
Pre-Procedural Eval Section A Date of Service: 05/02/22 Section B Chief Complaint: Anogenital (venereal) warts Details of Present Illness: has polypoid lesion resembling condyloma in the anal canal Relevant Family History (Specify if Yes): No Relevant Social History: None Present Medications: see Short Stay Collaborative assessment Medical History: No relevant PMH Allergies: Allergies Allergy/AdvReac Type Severity Reaction Status Date / Time diclofenac [DICLOFENAC] Allergy Unknown STOMACH Verified 05/02/22 10:36 PAIN Review of Systems Sugical H&P ROS: Negative: Constitution, Cardiovascular, Respiratory, Neurological, Psychiatric, Hem-Onc, Allergic/Immunologic, Gastrointestinal, Genitourinary, Musculoskeletal, Integumentary, Endocrine and Eyes/Ears/Nose/Throat Exam Surgical H&P Exam: Normal: HEENT, Normal: Heart, Normal: Lungs, Normal: Extremities, Normal: Abdomen, Normal: Skin and Normal: Neurological Exam Comment: anal canal lesion likely condyloma Plan Diagnosis/Plan: Unchanged I have reviewed the history and physical and performed a pertinent physical examination on my patient. No changes have occurred unless specified. Time Spent With Patient Time: Total time managing care of this patient today ____ minutes.
--- NOTE | 2022-05-02 11:55 | P.OP_ITS ---
Operative Note Operative Note Date of Service: 05/02/22 Narrative: Preop diagnosis: Anal canal lesions, likely condyloma Postop diagnosis: The same Procedure: Exam under anesthesia, excision of anal canal lesions x2 Surgeon: Denzel Cortes MD The patient is a 67-year-old male had undergone colonoscopy and was noted to have a condylomatous lesion removed from the anal canal near the rectal anal junction. There was a residual lesion left so he was referred to me for transanal excision. He understood the technique of the procedure. He was aware of the risks, benefits, and alternatives. The patient was brought to the operating room. He was placed in prone kolby- knife position under general anesthesia via LMA. The perianal area was prepped and draped in the usual sterile fashion. A surgical time-out was done. The patient received Cefotan 2 g IV preoperatively. Examination of the anal verge revealed external hemorrhoids. I insert the Jd Dye retractor. I examined the anal canal circumferentially. In the very proximal canal near the junction with the rectum anteriorly was note of a condylomatous lesion, about 5 mm in diameter. There was a similar lesion although smaller posteriorly as well at the same level I applied a stay stitch chromic 3-0 proximal to this lesion anteriorly. I proceeded to excise this lesion using scissors and this was sent as a specimen. I used the stay stitch for retraction. I then closed the incision with a runni ng chromic 3-0 stitch. Additional hemostatic [id number] sutures were placed. I repeated this procedure on the smaller condylomatous lesion on the anterior anal canal which was also proximal. This was excised in the same manner. This incision was closed with in chromic 3-0 stitch as well. There was some oozing along the excision site so I had to reinforce this with hemostatic figure-of-e ight chromic 3-0 sutures Once hemostasis appeared adequate, I proceeded to do a digital exam. The anal canal and the rectum were patent. There was no induration felt. I re-examined the entire anal canal with a retractor in place. There was good hemo stasis. There were no other lesions. I withdrew the retractor. I infiltrated the perianal area with Marcaine 0.5% for postop analgesia. I applied a rolled Gelfoam into the canal. The procedure was completed . The patient tolerated the procedure well. There were no immediate complications. Initial and final counts of sponges and instruments were correct. Estimated blood loss was about 25 cc. The patient was extubated without difficulty and transferred to the recovery room with stable vital signs.
[2022-05-02 12:07] VITALS: BP 140/92; PULSE 60; RESP 12; TEMP 36.2; O2SAT 98
[2022-05-02 12:12] VITALS: BP 145/91; PULSE 64; RESP 14; O2SAT 97
[2022-05-02 12:17] VITALS: BP 144/92; PULSE 68; RESP 16; O2SAT 96
[2022-05-02 12:22] VITALS: BP 154/93; PULSE 63; RESP 16; O2SAT 96
[2022-05-02] MEDS: Acetaminophen 325 MG TABLET 650 MG PO (12:29)
[2022-05-02 12:37] VITALS: BP 165/94; PULSE 62; RESP 16; TEMP 36.2; O2SAT 96
[2022-05-02] MEDS: oxyCODONE HCl Immed Release 5 MG TABLET PO (12:55)
== END 2022-05-02 13:54 | disposition home or self-care (01) ==
PROVIDERS: PCP Hospitalist; Visit Provider Surgery
PROC: (CPT 46922; principal; 2022-05-02 10:50)
DX: A63.0 Anogenital (venereal) warts (principal); D01.3 Carcinoma in situ of anus and anal canal; I10 Essential (primary) hypertension; E78.5 Hyperlipidemia, unspecified; F41.1 Generalized anxiety disorder; Z88.8 Allergy status to other drugs, medicaments and biological substances; Z79.899 Other long term (current) drug therapy
CPT/HCPCS: 46922; 88305; 88342; 88360; J2250; J2405; J2795; J3010

== ENCOUNTER → 2022-05-15 10:57 | Outpatient (BNVA) | payer MEDICARE, MEDICAID, SELFPAY | PROVIDERS: PCP Hospitalist; Referring Provider Hospitalist; Visit Provider Surgery | DX: K62.82 Dysplasia of anus (principal); A63.0 Anogenital (venereal) warts | CPT/HCPCS: 99212 ==

== ENCOUNTER → 2022-08-14 14:16 | Outpatient (BNVA) | payer MEDICARE, MEDICAID, SELFPAY | PROVIDERS: PCP Hospitalist; Visit Provider Surgery | DX: K62.82 Dysplasia of anus (principal) | CPT/HCPCS: 46600; 99212 ==

== ENCOUNTER 2022-11-13 09:56 | Outpatient (AMB) | payer MEDICARE, MEDICAID, SELFPAY ==
[2022-11-13 10:09] VITALS: BP 155/86; PULSE 60; BMI 24.4
--- NOTE | 2022-11-13 10:09 | MHC.OFFVIS ---
Intake Vital Signs 11/13/22 10:09 Height 5 ft 10 in Weight 170 lb BMI 24.4 BP 155/86 H Blood Pressure Location Rt brachial Position Sitting Pulse 60 Intake Visit Reasons: 3 mth follow up exc anal polyp Intake Note: This patient presents for a three month follow-up assessment status post excision of anal polyp. Patient c/o; reports no issues or concerns at this time, reports no new medications. Installation Tech Required: No Accompanied by: Self / Same As Patient Allergies diclofenac [DICLOFENAC] Allergy (Unknown, Verified 11/13/22 10:18) STOMACH PAIN Medication List - Last Reconciled 11/13/22 by Denzel Cortes MD amlodipine 1 tab PO DAILY atenolol 1 tab PO DAILY ibuprofen 600 mg PO Q6H PRN lisinopril 1 tab PO QAM ondansetron 4 mg PO Q8H PRN oxycodone-acetaminophen 5-325 mg (Percocet) 1 tab PO Q4-6H PRN pantoprazole 1 tab PO DAILY sucralfate 1 tab PO TID tadalafil 1 tab PO DAILY HPI 3 mth follow up exc anal polyp HPI Details Here for follow-up after excision of anal condylomas. He had AIN 3 on 1 of the lesions last April, He currently denies significant complaints. He says he does not have any pain or bleeding in his anus. He states he has good bowel movements and feels well overall. PFSH Medical History Anal intraepithelial neoplasia Condyloma acuminata Anxiety Hyperlipidemia GERD (gastroesophageal reflux disease) HTN (hypertension) Surgical History H/O hemorrhoidectomy History of ear surgery Hx of varicose vein ligation and stripping H/O colonoscopy History of esophagogastroduodenoscopy (EGD) Social History Patient Tobacco Use Status: Never used Tobacco Review of Systems Const Denies chills and Denies fever(s) Card Denies chest pain, Denies dyspnea and Denies dyspnea on exertion Resp Denies cough, Denies dyspnea and Denies dyspnea on exertion GI Denies hematochezia and Denies change in bowel habits Denies hematuria and Denies difficulty urinating Musc Denies back pain and Denies limited range of motion Neuro Denies focal weakness and Denies convulsions Psych Denies depression and Denies mood swings Physical Exam Vital Signs: Last Vital Signs Pulse 60 11/13/22 10:09 BP 155/86 H 11/13/22 10:09 BMI result Body Mass Index 24.4 Const General: comfortable and no acute distress Orientation/consciousness: patient oriented x3 Neck Neck: Yes no lymphadenopathy Resp Auscultation: clear to auscultation bilaterally Cardio Rhythm: regular rhythm GI Other: No perianal skin lesions or ulcerations, some prominent hair follicles but no obvious lesion or mass Palpation (GI): Soft to palpation, nontender and no guarding Neuro General: patient oriented x3 Office Procedures Anoscopy He was in kolby-knife position. The anoscope was gently inserted. A full examination of the entire anal canal was done. There were no lesions seen. There is no ulceration or any fissure. There is no tenderness or induration. There was no bleeding. [id number] Assessment & Plan Assessment & Plan (1) Anal intraepithelial neoplasia: Code(s): K62.82 - Dysplasia of anus Plan: His follow-up anoscopy does not reveal any recurrent or new lesions. I did however recommend to him to have another anoscopy in about 3 months. I will see him in the office therefore. He he does have any problems with regards to the anus, he can come back sooner than that. I also advised him on protected ano- receptive intercourse He says he is comfortable with the plan. Coding Level of Care Code Est Pt Level 3 (66057) Diagnoses Anal intraepithelial neoplasia K62.82 CPT Codes Details - CPT: 71806-[id number] ([id number])
== END 2022-11-13 10:34 | disposition home or self-care (01) ==
PROVIDERS: PCP Hospitalist; Visit Provider Surgery
DX: K62.82 Dysplasia of anus (principal)
CPT/HCPCS: 46600; 99213

== ENCOUNTER → 2022-11-13 09:56 | Outpatient (BNVA) | payer MEDICARE, MEDICAID, SELFPAY | PROVIDERS: PCP Hospitalist; Visit Provider Surgery | DX: K62.82 Dysplasia of anus (principal) | CPT/HCPCS: 46600; 99212 ==

== ENCOUNTER 2023-02-09 09:52 | Outpatient (AMB) | payer MEDICARE, SELFPAY ==
--- NOTE | 2023-02-09 09:56 | MHC.OFFVIS ---
Intake Vital Signs 02/09/23 10:04 Height 5 ft 10 in Weight 167 lb BMI 24.0 BP 147/87 H Blood Pressure Location Rt brachial Position Sitting Pulse 72 Intake Visit Reasons: Anal intraepithelial neoplasia, 3 mo follow up Intake Note: This patient presents for a three month follow-up assessment for anal intraepithelial neoplasia. Pt c/o; reports no complaints at this time. Process Control Technician Required: No Accompanied by: Self / Same As Patient Allergies diclofenac [DICLOFENAC] Allergy (Unknown, Verified 02/09/23 10:05) STOMACH PAIN Medication List - Last Reconciled 02/09/23 by Denzel Cortes MD amlodipine 1 tab PO DAILY atenolol 1 tab PO DAILY ibuprofen 600 mg PO Q6H PRN lisinopril 1 tab PO QAM ondansetron 4 mg PO Q8H PRN oxycodone-acetaminophen 5-325 mg (Percocet) 1 tab PO Q4-6H PRN pantoprazole 1 tab PO DAILY sucralfate 1 tab PO TID tadalafil 1 tab PO DAILY HPI Anal intraepithelial neoplasia, 3 mo follow up HPI Details Here for follow-up after excision of anal condylomas. He had AIN 3 on 1 of the lesions last April,. He continues to do well and denies any problems with regards to his anus. He denies any pain or bleeding. He has good bowel movements. He does state that he had prostate exam recently and is supposed to undergo an MRI because of an enlarged prostate. [facility] Medical History Anal intraepithelial neoplasia Condyloma acuminata Anxiety Hyperlipidemia GERD (gastroesophageal reflux disease) HTN (hypertension) Surgical History H/O hemorrhoidectomy History of ear surgery Hx of varicose vein ligation and stripping H/O colonoscopy History of esophagogastroduodenoscopy (EGD) Social History Patient Tobacco Use Status: Never used Tobacco Review of Systems Const Denies chills and Denies fever(s) Card Denies chest pain, Denies dyspnea and Denies dyspnea on exertion Resp Denies cough, Denies dyspnea and Denies dyspnea on exertion GI Denies hematochezia and Denies change in bowel habits Denies hematuria and Denies difficulty urinating Musc Denies back pain and Denies limited range of motion Neuro Denies focal weakness and Denies convulsions Psych Denies depression and Denies mood swings Physical Exam Vital Signs: Last Vital Signs Pulse 72 02/09/23 10:04 BP 147/87 H 02/09/23 10:04 BMI result Body Mass Index 24.0 Const General: comfortable and no acute distress Orientation/consciousness: patient oriented x3 Neck Neck: Yes no lymphadenopathy Resp Auscultation: clear to auscultation bilaterally Cardio Rhythm: regular rhythm GI Other: Rectal exam shows prominent hair follicles circumferentially around the anus, small chronically sclerosed rectal hemorrhoids with no lesions Palpation (GI): Soft to palpation, nontender and no guarding Neuro General: patient oriented x3 Office Procedures Anoscopy He was in kolby-knife position. The anoscope was gently inserted. A full examination of the anal canal was done. I did not see any lesions or any condylomas. There was no fissure or ulceration. There was no bleeding. There was no induration on digital exam. [id number] Assessment & Plan Assessment & Plan (1) Anal intraepithelial neoplasia: Code(s): K62.82 - Dysplasia of anus Plan: He has a history of AIN. His current exam including anoscopy does not reveal any new lesions. I will however see him again in the office in about 3 months. He understands the plan and is comfortable with this. Coding Level of Care Code Est Pt Level 3 (37552) Diagnoses Anal intraepithelial neoplasia K62.82 CPT Codes Details - CPT: [id number] ([id number])
[2023-02-09 10:04] VITALS: BP 147/87; PULSE 72; BMI 24.0
== END 2023-02-09 10:15 | disposition home or self-care (01) ==
PROVIDERS: PCP Hospitalist; Visit Provider Surgery
DX: K62.82 Dysplasia of anus (principal)
CPT/HCPCS: 46600; 99213

== ENCOUNTER → 2023-02-09 09:52 | Outpatient (BNVA) | payer MEDICARE, SELFPAY | PROVIDERS: PCP Hospitalist; Visit Provider Surgery | DX: K62.82 Dysplasia of anus (principal) | CPT/HCPCS: 46600; 99212 ==

== ENCOUNTER → 2023-05-11 08:01 | Outpatient (BNVA) | payer MEDICARE, SELFPAY | PROVIDERS: PCP Hospitalist; Visit Provider Surgery ==

== ENCOUNTER → 2023-05-13 08:40 | Outpatient (BNVA) | payer MEDICARE, SELFPAY | PROVIDERS: PCP Hospitalist; Visit Provider Surgery ==

== ENCOUNTER 2023-05-20 15:54 | Outpatient (AMB) | payer MEDICARE, SELFPAY ==
--- NOTE | 2023-05-20 15:55 | MHC.OFFVIS ---
Intake Vital Signs 05/20/23 15:56 Height 5 ft 10 in Weight 170 lb BMI 24.4 BP 165/84 H Blood Pressure Location Rt brachial Position Sitting Pulse 68 Comment Per pt weight is 170 lbs Intake Visit Reasons: Anal intraepithelial neoplasia 3m f/u Intake Note: This patient presents for a three month follow-up Anal intraepithelial neoplasia. Pt c/o; reports new Dx of prostate CA. Right Of Way Maintenance Supervisor Required: No Accompanied by: Other Relationship Allergies diclofenac [DICLOFENAC] Allergy (Unknown, Verified 05/20/23 16:03) STOMACH PAIN HPI Anal intraepithelial neoplasia 3m f/u HPI Details He is here for a follow-up after excision of anal condylomas. He had AIN 3 on 1 of the lesions last April,. He denies any complaints at this time. He says he feels well overall. He denies any bleeding or discomfort from his anus. He says he is awaiting treatment for his newly diagnosed prostate cancer. He is considering having radiation treatment instead of surgery. [facility] Medical History (Updated 05/20/23 @ 16:12 by Denzel Cortes MD) History of anal dysplasia Anal intraepithelial neoplasia Condyloma acuminata Anxiety Hyperlipidemia GERD (gastroesophageal reflux disease) HTN (hypertension) Surgical History H/O hemorrhoidectomy History of ear surgery Hx of varicose vein ligation and stripping H/O colonoscopy History of esophagogastroduodenoscopy (EGD) Social History Patient Tobacco Use Status: Never used Tobacco Review of Systems Const Denies chills and Denies fever(s) Card Denies chest pain, Denies dyspnea and Denies dyspnea on exertion Resp Denies cough, Denies dyspnea and Denies dyspnea on exertion GI Denies hematochezia and Denies change in bowel habits Denies hematuria and Denies difficulty urinating Musc Denies back pain and Denies limited range of motion Neuro Denies focal weakness and Denies convulsions Psych Denies depression and Denies mood swings Physical Exam Vital Signs: BMI result Body Mass Index 24.0 Const General: comfortable and no acute distress Orientation/consciousness: patient oriented x3 Neck Neck: Yes no lymphadenopathy Resp Auscultation: clear to auscultation bilaterally Cardio Rhythm: regular rhythm GI Other: Rectal exam shows no new perianal lesions. No obvious condyloma Palpation (GI): Soft to palpation, nontender and no guarding Neuro General: patient oriented x3 Office Procedures Anoscopy He was in kolby-knife position. The anoscope was gently inserted. A full examination of the anal canal was done. I did not see any new lesions. There has no condyloma seen. There were no fissures or ulceration. He did have some residual hemorrhoids, internal external. He did not have any induration nor bleeding on digital exam. [id number] Assessment & Plan Assessment & Plan (1) History of anal dysplasia: Code(s): Z87.19 - Personal history of other diseases of the digestive system Plan: He had AIN grade 3 on 1 of the condylomas removed last year. Current anoscopy and examination does not reveal any new lesions. There is no abnormal anal lining seen I would recommend repeating the anoscopy in about 6 months from here on. I did tell him that he can come back earlier if he notices any changes the anus. He is to undergo treatment as well for his prostate cancer. Coding Level of Care Code Est Pt Level 3 (39899) Diagnoses History of anal dysplasia Z87.19 CPT Codes Details - CPT: 55412-[id number] ([id number])
[2023-05-20 15:56] VITALS: BP 165/84; PULSE 68; BMI 24.4
== END 2023-05-20 16:13 | disposition home or self-care (01) ==
PROVIDERS: PCP Hospitalist; Visit Provider Surgery
DX: Z87.19 Personal history of other diseases of the digestive system (principal); K64.8 Other hemorrhoids
CPT/HCPCS: 46600; 99213

== ENCOUNTER → 2023-05-20 15:54 | Outpatient (BNVA) | payer MEDICARE, SELFPAY | PROVIDERS: PCP Hospitalist; Visit Provider Surgery | DX: Z87.19 Personal history of other diseases of the digestive system (principal) | CPT/HCPCS: 46600; 99212 ==

== ENCOUNTER 2023-11-16 15:28 | Outpatient (AMB) | payer MEDICARE, SELFPAY ==
--- NOTE | 2023-11-16 15:29 | A.OFFVIS_ITS ---
Vital Signs 11/16/23 15:36 Height 5 ft 10 in Weight 170 lb BMI 24.4 Comment weight stated by patient Intake Visit Reasons: Anal intraepithelial neoplasia 6m f/u Intake Note: This patient presents for six month follow-up Anal intraepithelial neoplasia. Pt c/o; reports no complaints. Pharmacovigilance Specialist Required: No Accompanied by: Other Relationship Allergies diclofenac [DICLOFENAC] Allergy (Unknown, Verified 11/16/23 15:37) STOMACH PAIN Medication List - Last Reconciled 11/16/23 by Denzel Cortes MD amlodipine 1 tab PO DAILY atenolol 1 tab PO DAILY ibuprofen 600 mg PO Q6H PRN lisinopril 1 tab PO QAM ondansetron 4 mg PO Q8H PRN oxycodone-acetaminophen 5-325 mg (Percocet) 1 tab PO Q4-6H PRN pantoprazole 1 tab PO DAILY sucralfate 1 tab PO TID tadalafil 1 tab PO DAILY HPI HPI Anal intraepithelial neoplasia 6m f/u: Details: 68-year-old male here for a follow-up for his history of AIN 3. He had undergone excision of condylomas from the perianal area last April,. One of the condylomas showed AIN 3. He had been therefore been followed up in the office for close surveillance with the anoscopy. He denies any new complaints. He feels well overall. He denies bleeding per rectum. He does state that he had been recently diagnosed to have early prostate cancer is undergoing active surveillance. [facility] Medical History (Updated 11/16/23 @ 15:50 by Denzel Cortes MD) 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 Condyloma acuminata Anxiety Hyperlipidemia GERD (gastroesophageal reflux disease) HTN (hypertension) Surgical History H/O hemorrhoidectomy History of ear surgery Hx of varicose vein ligation and stripping H/O colonoscopy History of esophagogastroduodenoscopy (EGD) Social History Patient Tobacco Use Status: Never used Tobacco Review of Systems Const Denies chills and Denies fever(s) Card Denies chest pain, Denies dyspnea and Denies dyspnea on exertion Resp Denies cough, Denies dyspnea and Denies dyspnea on exertion GI Denies hematochezia and Denies change in bowel habits Denies hematuria and Denies difficulty urinating Musc Denies back pain and Denies limited range of motion Neuro Denies focal weakness and Denies convulsions Psych Denies depression and Denies mood swings Physical Exam Vital Signs: BMI result Body Mass Index 24.4 Const General: comfortable and no acute distress Orientation/consciousness: patient oriented x3 Neck Neck: Yes no lymphadenopathy Resp Auscultation: clear to auscultation bilaterally Cardio Rhythm: regular rhythm GI Other: Rectal exam shows small multiple perianal elevated skin lesions resembling condylomas Palpation (GI): Soft to palpation, nontender and no guarding Neuro General: patient oriented x3 Office Procedures Anoscopy He was in kolby-knife position. The anoscope was gently inserted. A full examination of the anal canal was done. There were no condylomatous lesions in the anal canal itself. There were no lesions or ulceration or any fissure. He had good sphincter tone. There was no bleeding. [id number] Assessment & Plan Assessment & Plan (1) Perianal condylomata: Code(s): A63.0 - Anogenital (venereal) warts Category: Medical Plan: He has multiple small lesions in the perianal area consistent condyloma. I explained to him that because of a history AIN 3, it may be best to proceed with excision. We will schedule him for exam under anesthesia and excision/fulguration of the condyloma. I explained to him the technique of this procedure. I reviewed the risks, benefits, and alternatives. He understands and agrees to proceed. He says that he still is familiar with the procedure. Coding Level of Care Code Est Pt Level 3 (63010) Diagnoses Perianal condylomata A63.0 CPT Codes Details - CPT: [id number] ([id number])
[2023-11-16 15:36] VITALS: BMI 24.4
== END 2023-11-16 15:31 | disposition home or self-care (01) ==
PROVIDERS: PCP Hospitalist; Visit Provider Surgery
DX: A63.0 Anogenital (venereal) warts (principal)
CPT/HCPCS: 46600; 99213

== ENCOUNTER → 2023-11-16 15:28 | Outpatient (BNVA) | payer MEDICARE, SELFPAY | PROVIDERS: PCP Hospitalist; Visit Provider Surgery | DX: A63.0 Anogenital (venereal) warts (principal) | CPT/HCPCS: 46600; 99212 ==

== ENCOUNTER 2023-12-04 10:07 | Day surgery (SDC) | payer MEDICARE, OTHER, SELFPAY ==
[2023-12-02 08:03] VITALS: BMI 24.4
--- NOTE | 2023-12-02 14:11 | P.CONAN_ITS ---
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 Condyloma acuminata Anxiety Hyperlipidemia GERD (gastroesophageal reflux disease) HTN (hypertension) Family History Family history of problems with anesthesia: No Surgical History Surgical History H/O hemorrhoidectomy History of ear surgery Hx of varicose vein ligation and stripping H/O colonoscopy History of esophagogastroduodenoscopy (EGD) History of Problems with Anesthesia: No Social History Social History Patient Tobacco Use Status: Never used Tobacco Advance Directives: No Advance Directives Information Provided: Yes Meds Allergies Allergy/AdvReac Type Severity Reaction Status Date / Time diclofenac [DICLOFENAC] Allergy Unknown STOMACH Verified 11/16/23 15:37 PAIN Home Medications ?Medication ?Instructions ?Recorded ?Confirmed ?Last Taken ?Type amlodipine 5 mg tablet 1 tab PO DAILY 05/27/21 12/04/23 12/04/23 History atenolol 50 mg tablet 1 tab PO DAILY 05/27/21 12/04/23 12/04/23 History lisinopril 20 mg tablet 1 tab PO QAM 05/27/21 12/04/23 12/04/23 History pantoprazole 40 mg tablet,delayed 1 tab PO DAILY 05/27/21 12/04/23 12/04/23 History release tadalafil 10 mg tablet 1 tab PO DAILY 03/18/22 12/04/23 Unknown History Exam Height,Weight and Vital Signs: Height 5 ft 10 in Weight 77.111 kg Assessment and Plan Assessment Anesthesia Assessment: Chart Reviewed Final Anesthetic Review Family History of Problems with Anesthesia: No History of Problems with Anesthesia: No Documented by User: Yoana Degroot MD 12/04/23 10:29 [facility] Past Medical History Medical History (Updated 11/16/23 @ 15:50 by Denzel Cortes MD) 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 Condyloma acuminata Anxiety Hyperlipidemia GERD (gastroesophageal reflux disease) HTN (hypertension) Surgical History Surgical History H/O hemorrhoidectomy History of ear surgery Hx of varicose vein ligation and stripping H/O colonoscopy History of esophagogastroduodenoscopy (EGD) Social History Social History Patient Tobacco Use Status: Never used Tobacco Advance Directives: No Advance Directives Information Provided: Yes Meds Allergies Allergy/AdvReac Type Severity Reaction Status Date / Time diclofenac [DICLOFENAC] Allergy Unknown STOMACH Verified 11/16/23 15:37 PAIN Home Medications ?Medication ?Instructions ?Recorded ?Confirmed ?Last Taken ?Type amlodipine 5 mg tablet 1 tab PO DAILY 05/27/21 12/04/23 12/04/23 History atenolol 50 mg tablet 1 tab PO DAILY 05/27/21 12/04/23 12/04/23 History lisinopril 20 mg tablet 1 tab PO QAM 05/27/21 12/04/23 12/04/23 History pantoprazole 40 mg tablet,delayed 1 tab PO DAILY 05/27/21 12/04/23 12/04/23 History release tadalafil 10 mg tablet 1 tab PO DAILY 03/18/22 12/04/23 Unknown History Exam Airway Mallampati Class: II (missing a couple teeth) TM Dist: >3cm Neck ROM: Full Heart: rrr Lungs: cta Assessment and Plan Assessment Anesthesia Assessment: Anesthesia Plan Discussed Final Anesthetic Review NPO: Yes ASA Class: II Final Preanesthetic Review: No Changes in Pt Med Stat, Meds/Allgs Chart Reviewed and Consent Obtained/Reviewed Patient Risk: Low Procedure Risk: Low Anesthetic Plan Anesthetic Plan: GA Disposition: Standard PACU
[2023-12-04 10:23] VITALS: BP 136/89; PULSE 59; RESP 16; TEMP 36.8; O2SAT 97; BMI 24.4
[2023-12-04] MEDS: Lactated Ringers 1,000 ML 100 ML IVCONT (10:47)
--- NOTE | 2023-12-04 12:30 | MHC.SHP ---
Pre-Procedural Eval Section A - 24 Hr Update-Section A only Date of Service: 12/04/23 The patient is an INPATIENT: No Changes since office visit: No Cold of Flu in the past 2 weeks, No New Medical Problems, No Changes in Medication and No Patient answered all questions The patient has been examined within 24 hours of the surgical procedure. The History & Physical has been completed within 30 days and I have reviewed it.: Yes Section B - Complete if H&P > 30 days Chief Complaint: Anogenital (venereal) warts Allergies: Allergies Allergy/AdvReac Type Severity Reaction Status Date / Time diclofenac [DICLOFENAC] Allergy Unknown STOMACH Verified 11/16/23 15:37 PAIN Plan I have reviewed the history and physical and performed a pertinent physical examination on my patient. No changes have occurred unless specified. Time Spent With Patient Time: Total time managing care of this patient today ____ minutes.
--- NOTE | 2023-12-04 13:07 | W.PM.OPN ---
Operative Note Operative Note Date of Service: 12/04/23 Narrative: Preop diagnosis: perianal condyloma Postop diagnosis: the same Procedure: EUA, excision and fulguration of perianal condyloma Surgeon: Denzel Cortes MD Asst: ABRAHAN Stanley student The patient is a 68-year-old male with note of perianal condyloma. He had a previous AIN as well. He understood the technique of excision and fulguration. He was aware of the risks, benefits, and alternatives. He was brought to the operating room. He was placed in prone kolby-knife position under general anesthesia via endotracheal tube. The buttocks were retracted with wide tape laterally. The perianal area was prepped and draped usual sterile fashion. A surgical time-out was done. The patient received Cefotan 2 g IV preoperatively I infiltrated the perianal area with lidocaine 1%. Examination of the perianal skin revealed anal condylomas lesions about 2 mm to 4 mm in size. This were multiple and were around the perianal skin. I excised some of the lesions for specimen. I then cauterized all of these lesions down to a grayish eschar. I inserted the Jd Dey retractor. I examined the anal canal circumferentially. There were about 2 or 3 other small condylomatous lesions. These were also cauterized down to grayish eschar. I observed for good hemostasis. Once hemostasis was confirmed and there were no other lesions seen, I infiltrated the perianal area with Marcaine 0.5% postop analgesia. The procedure was then completed. The patient tolerated the procedure well. There were no immediate complications. Initial and final counts of sponges and instruments were correct. Estimated blood loss was about 5 cc. The patient was extubated without difficulty and transferred to the recovery room with stable vital signs.
[2023-12-04 13:15] VITALS: BP 126/82; PULSE 69; RESP 16; TEMP 36.2; O2SAT 96
[2023-12-04 13:20] VITALS: BP 137/77; PULSE 69; RESP 16; O2SAT 96
[2023-12-04 13:25] VITALS: BP 145/90; PULSE 67; RESP 16; O2SAT 97
[2023-12-04 13:30] VITALS: BP 152/89; PULSE 64; RESP 16; O2SAT 96
[2023-12-04 13:46] VITALS: BP 131/78; PULSE 63; RESP 16; TEMP 36.2; O2SAT 96
== END 2023-12-04 14:33 | disposition home or self-care (01) ==
PROVIDERS: PCP Hospitalist; Visit Provider Surgery
PROC: 0DBQXZZ Excision of Anus, External Approach (ICD-10-PCS; CPT 46924; principal; 2023-12-04 12:10)
DX: A63.0 Anogenital (venereal) warts (principal); K62.82 Dysplasia of anus; I10 Essential (primary) hypertension; Z79.1 Long term (current) use of non-steroidal anti-inflammatories (NSAID); Z79.899 Other long term (current) drug therapy; Z88.8 Allergy status to other drugs, medicaments and biological substances; Z98.890 Other specified postprocedural states
CPT/HCPCS: 46924; 88305; 88342; J1100; J2003; J2250; J2405; J2704; J2795; J3010

== ENCOUNTER → 2023-12-04 10:07 | Outpatient (BNV) | payer MEDICARE, SELFPAY | PROVIDERS: PCP Hospitalist; Visit Provider Surgery | DX: A63.0 Anogenital (venereal) warts (principal) | CPT/HCPCS: 46922 ==

== ENCOUNTER 2023-12-24 09:48 | Outpatient (AMB) | payer MEDICARE, SELFPAY ==
--- NOTE | 2023-12-24 09:50 | MHC.OFFVIS ---
Vital Signs 12/24/23 09:53 Height 5 ft 10 in Weight 170 lb BMI 24.4 Comment Wt stated by Pt Intake Visit Reasons: S/P excision fulguration of perianal condyloma Intake Note: This patient presents for post-op assessment status post EUA, excision and fulguration of perianal condyloma. Pt c/o; reports no complaints. 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 He tolerated procedure well. He says he is doing well although admits to some pain in the area which is improving. 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 Condyloma acuminata Anxiety Hyperlipidemia GERD (gastroesophageal reflux disease) HTN (hypertension) Surgical History Hx of surgical procedure (~12/04/23) H/O hemorrhoidectomy History of ear surgery Hx of varicose vein ligation and stripping H/O colonoscopy History of esophagogastroduodenoscopy (EGD) Social History Are you a primary ocular care aide to a significant other at home: No Do you presently have visiting nurse or other home services: No Patient Tobacco Use Status: Never used Tobacco Review of Systems Const Denies chills and Denies fever(s) Physical Exam Vital Signs: BMI result Body Mass Index 24.4 Const General: comfortable and no acute distress Resp Effort & Inspection: normal respiratory effort GI Other: Rectal exam shows the excision sites and fulguration sites are healing well, no evidence of infection, no new obvious lesions Assessment & Plan Assessment & Plan (1) Condyloma acuminata: Code(s): A63.0 - Anogenital (venereal) warts Category: Medical Plan: Status post excision and fulguration. He is doing well His excision and fulguration sites are healing well.There is no evidence of dysplasia on the specimens submitted I explained to him that I will need to see him again in about 6 months and we will repeat his anoscopy. Coding Level of Care Code Global (10178) Diagnoses Condyloma acuminata A63.0
[2023-12-24 09:53] VITALS: BMI 24.4
== END 2023-12-24 10:01 | disposition home or self-care (01) ==
PROVIDERS: PCP Hospitalist; Visit Provider Surgery
DX: A63.0 Anogenital (venereal) warts (principal)
CPT/HCPCS: 99024

== ENCOUNTER → 2023-12-24 09:48 | Outpatient (BNVA) | payer MEDICARE, SELFPAY | PROVIDERS: PCP Hospitalist; Visit Provider Surgery | DX: A63.0 Anogenital (venereal) warts (principal) | CPT/HCPCS: 99212 ==

== ENCOUNTER 2024-06-06 12:59 | Outpatient (AMB) | payer MEDICARE, MEDICAID, SELFPAY ==
--- NOTE | 2024-06-06 13:01 | A.OFFVIS_ITS ---
Vital Signs 06/06/24 13:05 Height 5 ft 10 in Weight 172 lb BMI 24.7 BP 144/83 H Blood Pressure Location Lt brachial Position Sitting Pulse 81 Intake Visit Reasons: 6 month follow up visit, anoscopy Intake Note: Patient is seen in office for 6 month follow up, anoscopy. 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 He says he has had no problems since that time . He denies any bleeding or any palpable mass in the anus. He denies any significant pain He does have a history of AIN III 2 years ago. 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 Condyloma acuminata Anxiety Hyperlipidemia GERD (gastroesophageal reflux disease) HTN (hypertension) Surgical History Hx of surgical procedure (~12/04/23) H/O hemorrhoidectomy History of ear surgery Hx of varicose vein ligation and stripping H/O colonoscopy History of esophagogastroduodenoscopy (EGD) Social History Are you a primary account executive healthcare to a significant other at home: No Do you presently have visiting nurse or other home services: No Patient Tobacco Use Status: Never used Tobacco Review of Systems Const Denies chills and Denies fever(s) Card Denies chest pain, Denies dyspnea and Denies dyspnea on exertion Resp Denies cough, Denies dyspnea and Denies dyspnea on exertion GI Denies hematochezia and Denies change in bowel habits Denies hematuria and Denies difficulty urinating Musc Denies back pain and Denies limited range of motion Neuro Denies focal weakness and Denies convulsions Psych Denies depression and Denies mood swings Physical Exam Vital Signs: Last Vital Signs Pulse 81 06/06/24 13:05 BP 144/83 H 06/06/24 13:05 BMI result Body Mass Index 24.7 Const General: comfortable and no acute distress Orientation/consciousness: patient oriented x3 Neck Neck: Yes no lymphadenopathy Resp Auscultation: clear to auscultation bilaterally Cardio Rhythm: regular rhythm GI Other: No perianal lesions, no recurrent condylomas Palpation (GI): Soft to palpation, nontender and no guarding Neuro General: patient oriented x3 Office Procedures Anoscopy He was in a kneeling kolby-knife position. The anoscope was gently inserted. A full examination of the anal canal was done. I did not see any condylomatous lesions. There were no abnormal looking mucosa or lining of the anal canal. There were no fissures or ulceration. There was no induration on digital exam. There was no bleeding. He had good sphincter tone. [id number] Assessment & Plan Assessment & Plan (1) History of anal dysplasia: Code(s): Z87.19 - Personal history of other diseases of the digestive system Category: Medical Plan: He had excision of condylomatous lesions last November, and there were areas of dysplasia seen Current anoscopy does not reveal any suggestion of any recurrent condyloma or any abnormal lining. I will therefore see him again in about 1 year for repeat anoscopy. I did tell him that if he notices any changes in his anus including recurrent growth, I will need to see him in the office earlier than that. He says he understands this well. Coding Level of Care Code Est Pt Level 3 (37659) Diagnoses History of anal dysplasia Z87.19 CPT Codes Details - CPT: 87486-[id number] ([id number])
[2024-06-06 13:05] VITALS: BP 144/83; PULSE 81; BMI 24.7
--- OUTSIDE RECORDS SUMMARY | 2024-06-06 14:54 | XMS_ITS | Patient Health Record ---
Author Organization [facility] Address [address] [place] [id number] Care Team Providers Care Vp Legal Affairs Name Role Phone DANIE EMIL Primary Care Provider Estevan Au Jr Unavailable Reason For Referral No Information Medications Medication SIG (Take, Route, Frequency, Duration) Notes Start Date End Date Status Tadalafil 10 MG 1 tablet as needed O rally Once a day for 30 day(s) Active Atenolol 50 MG 1 tablet Orally Once a day Active Pantoprazole Sodium 40 MG 1 tablet Orall y Once a day Active Sucralfate 1 GM/10ML 10 mL on an empty s tomach Orally Twice a day for 30 day(s) Active Lisinopril 20 MG 1 tablet Orally Once a day Active amLODIPine Besylate 5 MG Oral for 90 Active MiraLax (colon prep) 17 GM/SCOOP mixed with Gatorade or Crystal Light Orally begin at 5:00 p.m. the day before the procedure for 1 day 02/26/2022 Active Immunizations Vaccine Route Administration Date Status Comme nts Influenza Unknown 11/23/2020 Administered Influenza Unknown 01/08/2022 Administered Social History Tobacco Use: Social History Observation Description Date Details (start date - stop date) Never Smoker NA - NA Tobacco Use/Smoking Question Answer Notes Patient is a nonsmoker Alcohol Screen Question Answer Notes Did you have a drink containing alcohol in the p ast year? No Points 0 Interpretation Negative Problems Problem Type SNOMED Code ICD Code Onset Dates Problem Status W/U Status Risk Notes Problem 661674891 Colon cancer screening (Z12.11) Active confirmed Problem 34010327 Epigastric pain (R10.13) Active confirmed Problem 438935823 Gastroesophageal reflux disease without esophagitis (K21.9) Active confirmed Problem Gastritis (3028307) Gastritis (K29.70) Active confirmed Problem 769432433 Abnormal CT scan , stomach (R93.3) Active confirmed Problem 646310600 Abdominal pain, generalized (R10.84) Active confirmed Problem 48702248 Acute gastritis without hemorrhage, unspecified gastritis type (K29.00) Active confirmed Plan Of Treatment Pending Test Test Name Order Date LIVER PROFILE 02/26/2022 LIPASE 02/26/2022 CBC w/o DIFF 02/26/2022 US ABD 02/26/2022 Future Test Test Name Order Date UPPER GI ENDOSCOPY 02/04/2017 COLONOSCOPY 02/04/2017 UPPER GI ENDOSCOPY 04/25/2021 COLONOSCOPY 02/26/2022 Insurance Providers Payer Name Payer Address Payer Phone Subscriber Number Group Number Insured Name Patient Relationship to Insured Coverage Start Date Coverage End Date [facility] [address] [place], [place] [id number] [phone] [id number] JELENA BARBA Self - patient is the insured [place] [address] [place] [address] [phone] [id number] JELENA BARBA Self - patient is the insured Medical (General) History Medical History History ICD Code Hypertension Anxiety Gastroesophageal reflux disease, EGD 09/24 2, normal Colonoscopy 03/19/22, tubular adenoma, five-year followup, squamous intraepithelial lesion, referred to Dr. Cortes Hyperlipidemia Surgical History Surgery Date(Month/Year) varicose vein stripping ear surgery
--- OUTSIDE RECORDS SUMMARY | 2024-06-06 14:54 | XMS_ITS ---
Author Organization [facility] Address [address] [place] [address] [address] [place] [address] Care Team Providers Care Casino Surveillance Officer Name Role Phone EMIL HELTON Primary Care Provider [phone] REASON FOR VISIT Refill Medications Medication SIG (Take, Route, Frequency, Duration) Notes Start Date End Date Status Pantoprazole Sodium 40 MG 1 tablet Orall y Once a day for 90 days Active Encounters Encounter Location Date Provider Diagnosis [facility] [address] [place] [address] 11/17/2023 EMIL HELTON Plan Of Treatment Medication Medication Name Sig Start Date Stop Date Notes Pantoprazole Sodium 40 MG 1 tablet Orall y Once a day for 90 days Next Appt Details Provider Name:EMIL HELTON , 09/29/2024 10:00:00 AM, [address] [place] [address] [address], [place], [address], Progress Notes * Elaina BARBAhDOB: 6 (68 yo M)Acc No.[id number]:11/17/2023 Patient:?Carrington BARBA :1955???Age:68 Y???Sex:Male Address:[address] [place] [address] * Refills? Refill Pantoprazole Sodium Tablet Delayed Release, 40 MG, Orally, 90 Tablet, 1 tablet, Once a day, 90 days, Refills=3 * true * Date:? Generated for Jailene bautista/Сергей/Luluitting on:?06/06/2024 02:53 PM EDT
--- OUTSIDE RECORDS SUMMARY | 2024-06-06 14:54 | XMS_ITS | Patient Health Record ---
Author Organization [employer] Address [address] [place] [address] Care Team Providers Care Academic Affairs Director Name Role Phone EMIL HELTON Primary Care Provider [phone] Allergies Allergen (clinical drug ingredient) Drug/Non Drug Allergy documented on EMR Reaction Allergy Type Onset Date Status doxycycline Doxycycline upset stomach Drug Allergy Active Results Component Value Reference Range Notes Hemoglobin [id number] Reviewed date:10/07/2023 12:19:07 PM Interpretation: Performing Lab:[facility], [facility], Phone - [phone], Director - Tiana Notes/Report: Hemoglobin A1c 5.6 4.8-5.6 % . Prediabetes: 5.7 - 6.4 Diabetes: >6.4 Glycemic control for adults with diabetes: <7.0 Lipid Panel-[id number] Reviewed date:10/07/2023 12:19:10 PM Interpretation: Performing Lab:[facility], [employer] [place], Phone - [phone], Director - MDJodry Notes/Report: Cholesterol, Total 169 100-199 mg/dL Triglycerides 108 0-149 mg/dL HDL Cholesterol 35 >39 mg/dL VLDL Cholesterol Rich 20 5-40 mg/dL LDL Chol Calc ([facility]) 114 0-99 mg/dL Comp. Metabolic Panel (14)-3 Reviewed date:10/07/2023 12:19:12 PM Interpretation: Performing Lab:[facility], [address] [email or web address] [place], Phone - [phone], Director - MDJodry Notes/Report: Glucose 108 70-99 mg/dL BUN 19 8-27 mg/dL Creatinine 0.95 0.76-1.27 mg/dL eGFR 88 >59 mL/min/1.73 BUN/Creatinine Ratio 20 10-24 Sodium 139 134-144 mmol/L Potassium 4.3 3.5-5.2 mmol/L Chloride 103 96-106 mmol/L Carbon Dioxide, Total 21 20-29 mmol/L Calcium 9.2 8.6-10.2 mg/dL Protein, Total 6.5 6.0-8.5 g/dL Albumin 4.4 3.9-4.9 g/dL Globulin, Total 2.1 1.5-4.5 g/dL Bilirubin, Total 0.7 0.0-1.2 mg/dL Alkaline Phosphatase 62 44-121 IU/L AST (SGOT) 19 0-40 IU/L ALT (SGPT) 15 0-44 IU/L Albumin/Creatinine Ratio,Uri ne-[id number] Reviewed date:10/07/2023 12:19:15 PM Interpretation: Performing Lab:[facility], [address] [place] [address], Phone - [phone], Director - Tiana Notes/Report: Creatinine, Urine 108.4 Not Estab. mg/dL Albumin, Urine 38.4 Not Estab. ug/mL Alb/Creat Ratio 35 0-29 mg/g creat Normal: 0 - 29 Moderately increased: 30 - 300 Severely increased: >300 Reason For Referral Reason Evaluation and manag ement Diagnosis 1 Encounter for examin ation of eyes and vision without abnormal findings (Z01.00) Referral Organization [facility] Referring Provider First Name EMIL Referring Provider Last Name [facility] Referring Provider Speciality Internal M edicine Referred Provider Specialty Ophthalmolog y General Notes Referral sent to [facility] - Dept will call patient for scheduling.Roc Latraya 09/30/2023 08:44:31 AM > Referral Priority Routine Reason HIV Prevention thera py cannot tolerate pills and wants injectable - hx of syphillis- [place] Diagnosis 1 Human immunodeficien cy virus [HIV] disease (B20) Referral Organization [facility] Referring Provider First Name EMIL Referring Provider Last Name [facility] Referring Provider Speciality Internal M edicine Referred Provider Specialty Infectious D isease General Notes Referral faxed to Baljit saldana Infectious disease. Please call patient to schedule.Leslie Christy 04/15/2024 04:49:26 PM > Referral Priority Routine Medications Medication SIG (Take, Route, Frequency, Duration) Notes Start Date End Date Status Lisinopril 20 MG TAKE 1 TABLET BY CHARMAINE TH EVERY DAY IN THE MORNING for 90 Active Ondansetron 4 MG LET 1 TABLET DISSOLV E ON TOP OF THE TONGUE EVERY DAY FOR 30 DAYS Orally Once a day for 30 days Active amLODIPine Besylate 5 MG TAKE 1 TABLET B Y MOUTH EVERY DAY for 90 Active Pantoprazole Sodium 40 MG 1 tablet Orall y Once a day for 90 days Active hydrOXYzine HCl 10 MG TAKE 1 TABLET BY M OUTH THREE TIMES A DAY NEEDED for 90 Not-Taking Atenolol 50 MG TAKE 1 TABLET BY CHARMAINE TH EVERY DAY for 90 Active Sucralfate 1 GM 1 tablet on an empty stomach Orally four times a day Not-Taking Tadalafil 10 MG take 1 tablet by charmaine th daily as needed for 30 Active Escitalopram Oxalate 10 MG every day Orally Once a day for 30 days Not-Taking Bactrim DS 800-160 MG 1 tablet Orally Tw ice a day for 7 days 01/13/2023 Not-Taking Immunizations Vaccine Route Administration Date Status Comme nts COVID 19 Pfizer Unknown 06/07/2020 Administered COVID 19 Pfizer Unknown 06/29/2020 Administered COVID 19 Pfizer Unknown 01/22/2021 Administered Flu Unknown 01/07/2023 Administered Hep B, adult dosage, for intramuscular use Unknown 03/28/2020 Administered Influenza Unknown 12/25/2021 Administered Pneumococcal conjugate PCV 13 Unknown 03/19/2021 Admini stered Shingrix Unknown 12/25/2021 Administered Shingrix Unknown 12/18/2021 Administered Shingrix Unknown 01/07/2023 Administered Social History Tobacco Use: Social History Observation Description Date Details (start date - stop date) Never Smoker NA - NA Tobacco Use/Smoking Question Answer Notes Are you a nonsmoker Alcohol Screen (Audit-C) Question Answer Notes Did you have a drink contain ing alcohol in the past year? Yes How often did you have a dri nk containing alcohol in the past year? 2 to 4 times a month (2 points) How many drinks did you have on a typical day when you were drinking in the past year? 1 or 2 drinks (0 point) Points 2 Interpretation Negative Problems Problem Type SNOMED Code ICD Code Onset Dates Problem Status W/U Status Risk Notes Problem Syphilis (88693071) Syphilis, unspecified (A53.9) Active confirmed Problem Human immunodeficiency virus infection (20214508) Human immunodeficiency virus [HIV] disease (B20) Active confirmed Problem Malignant neoplasm of prostate (033900152) Malignant neoplasm of prostate (C61) Active confirmed Problem Essential hypertension (24221644) Essential (primary) hypertension (I10) Active confirmed Problem Disorder of penis (28000673) Other specified disorders of penis (N48.89) Active confirmed Problem Abnormal results of liver function studies (221155887) Abnormal results of liver function studies (R94.5) Active confirmed Problem History of malignant neoplasm of prostate (053634540) Personal history of malignant neoplasm of prostate (Z85.46) Active confirmed Problem Vitamin D deficiency (95785500) Vitamin D deficiency (E55.9) Active confirmed Problem Generalized anxiety disorder (52586267) BIRGIT (generalized anxiety disorder) (F41.1) Active confirmed Problem Gastroesophageal reflux disease (782212542) Gastroesophageal reflux disease, unspecified whether esophagitis present (K21.9) Active confirmed Vital Signs Heart Rate 61 /min 04/04/2024 Temperature 96.7 degrees Fahrenheit 04/04/2024 Blood pressure diastolic 80 mm Hg 04/04/2024 Oximetry 98 % 04/04/2024 Height 70 in 04/04/2024 Blood pressure systolic 130 mm Hg 04/04/2024 Weight 172.0 lbs 04/04/2024 BMI 24.68 kg/m2 04/04/2024 Encounters Encounter Location Date Provider Diagnosis [address] [place] [address] 09/28/2023 EMIL HELTON Encounter for genera l adult medical examination without abnormal findings Z00.00 ; Essential (primary) hypertension I10 ; Gastroesophageal reflux disease, unspecified whether esophagitis present K21.9 ; Personal history of malignant neoplasm of prostate Z85.46 and Impaired fasting glucose R73.[address] [place] [address] 04/04/2024 EMIL HELTON Essential (primary) hypertension I10 ; Gastroesophageal reflux disease, unspecified whether esophagitis present K21.9 ; Personal history of malignant neoplasm of prostate Z85.46 ; Impaired fasting glucose R73.01 and Vitamin D deficiency E55.[address] [address] 11/17/[address] [address] 04/15/[address] [address] 10/07/2023 [facility] Assessments Encounter Date Diagnosis (ICD Code) Assessment Notes Treatment Notes Treatment Clinical Notes Section Notes 09/28/2023 Essential (primary) hypertension (ICD-10 - I10) Mr. Savage is a 68-year-old gentleman with syphilis which was treated, GERD and he sees Dr. Patel at [facility], generalized anxiety disorder, hypertension and erectile dysfunction here for annual physical. Plan is as follows: Hypertension. His diastolic blood pressure is running high in the office today. Cut back on sodium intake. Advised appropriate hydration, cardio exercises and weight loss. Continue current regimen. EKG is normal sinus rhythm at 57 [address]pm with no [address] or T wave changes, no bundle-branch block, normal intervals. Prostate cancer. He is currently on active surveillance by urologist and he is asymptomatic Impaired fasting glucose. Dietary restrictions, regimental exercise and weight loss advised. check A1c. GERD. Stable on Pantoprazole Sodium 40 MG Eye screening. Referred to net finisher. Dental screening. He sees dentist regularly. Colon cancer screening. He had his colonoscopy done every 10 years. Skin cancer screening. He sees his commercial sales consultant regularly. Immunizations. He is up-to-date on his COVID, pneumonia, shingles and influenza vaccinations. Screening blood work before next appointment. General health concerns discussed with patient. Scribe services used to formulate this note under HIPAA compliance and under [place] law mandated for scribe services. Patient aware of service. Verbal consent and written consent taken from the patient. Patient understands and verbalizes understanding of the scribes services and all questions answered regarding scribes services. Patient agrees to use of scribes services. 09/28/2023 Encounter for general adult medical examination without abnormal findings (ICD-10 - Z00.00) Mr. Savage is a 68-year-old gentleman with syphilis which was treated, GERD and he sees Dr. Patel at [facility], generalized anxiety disorder, hypertension and erectile dysfunction here for annual physical. Plan is as follows: Hypertension. His diastolic blood pressure is running high in the office today. Cut back on sodium intake. Advised appropriate hydration, cardio exercises and weight loss. Continue current regimen. EKG is normal sinus rhythm at 57 bpm with no acute ST or T wave changes, no bundle-branch block, normal intervals. Prostate cancer. He is currently on active surveillance by urologist and he is asymptomatic Impaired fasting glucose. Dietary restrictions, regimental exercise and weight loss advised. check A1c. GERD. Stable on Pantoprazole Sodium 40 MG Eye screening. Referred to net finisher. Dental screening. He sees dentist regularly. Colon cancer screening. He had his colonoscopy done every 10 years. Skin cancer screening. He sees his commercial sales consultant regularly. Immunizations. He is up-to-date on his COVID, pneumonia, shingles and influenza vaccinations. Screening blood work before next appointment. General health concerns discussed with patient. Scribe services used to formulate this note under HIPAA compliance and under [place] law mandated for scribe services. Patient aware of service. Verbal consent and written consent taken from the patient. Patient understands and verbalizes understanding of the scribes services and all questions answered regarding scribes services. Patient agrees to use of scribes services. 04/04/2024 Essential (primary) hypertension (ICD-10 - I10) Mr. Savage is a 68-year-old gentleman with syphilis which was treated, GERD and he sees Dr. Patel at [facility], generalized anxiety disorder, hypertension and erectile dysfunction here for f/u. Plan is as follows: Hypertension. His diastolic blood pressure is running high in the office today. Cut back on sodium intake. Advised appropriate hydration, cardio exercises and weight loss. Continue current regimen. Prostate cancer. He is currently on active surveillance by urologist and he is asymptomatic Impaired fasting glucose. Dietary restrictions, regimental exercise and weight loss advised. check A1c. GERD. Stable on Pantoprazole Sodium 40 MG History of syphilis. He saw infectious disease and is treated. He also needs referral to see infectious disease for HIV prevention because his partner is HIV positive. He has tried tablets which did not help and he wants injectables for prevention. Eye screening. Referred to net finisher. Dental screening. He sees dentist regularly. Colon cancer screening. He had his colonoscopy done every 10 years. Skin cancer screening. He sees his commercial sales consultant regularly. Immunizations. He is up-to-date on his COVID, pneumonia, shingles and influenza vaccinations. Screening blood work before next appointment. 04/04/2024 Gastroesophageal reflux disease, unspecified whether esophagitis present (ICD-10 - K21.9) Mr. Savage is a 68-year-old gentleman with syphilis which was treated, GERD and he sees Dr. Patel at [facility], generalized anxiety disorder, hypertension and erectile dysfunction here for f/u. Plan is as follows: Hypertension. His diastolic blood pressure is running high in the office today. Cut back on sodium intake. Advised appropriate hydration, cardio exercises and weight loss. Continue current regimen. Prostate cancer. He is currently on active surveillance by urologist and he is asymptomatic Impaired fasting glucose. Dietary restrictions, regimental exercise and weight loss advised. check A1c. GERD. Stable on Pantoprazole Sodium 40 MG History of syphilis. He saw infectious disease and is treated. He also needs referral to see infectious disease for HIV prevention because his partner is HIV positive. He has tried tablets which did not help and he wants injectables for prevention. Eye screening. Referred to net finisher. Dental screening. He sees dentist regularly. Colon cancer screening. He had his colonoscopy done every 10 years. Skin cancer screening. He sees his commercial sales consultant regularly. Immunizations. He is up-to-date on his COVID, pneumonia, shingles and influenza vaccinations. Screening blood work before next appointment. 04/04/2024 Personal history of malignant neoplasm of prostate (ICD-10 - Z85.46) Mr. Savage is a 68-year-old gentleman with syphilis which was treated, GERD and he sees Dr. Patel at [facility], generalized anxiety disorder, hypertension and erectile dysfunction here for f/u. Plan is as follows: Hypertension. His diastolic blood pressure is running high in the office today. Cut back on sodium intake. Advised appropriate hydration, cardio exercises and weight loss. Continue current regimen. Prostate cancer. He is currently on active surveillance by urologist and he is asymptomatic Impaired fasting glucose. Dietary restrictions, regimental exercise and weight loss advised. check A1c. GERD. Stable on Pantoprazole Sodium 40 MG History of syphilis. He saw infectious disease and is treated. He also needs referral to see infectious disease for HIV prevention because his partner is HIV positive. He has tried tablets which did not help and he wants injectables for prevention. Eye screening. Referred to net finisher. Dental screening. He sees dentist regularly. Colon cancer screening. He had his colonoscopy done every 10 years. Skin cancer screening. He sees his commercial sales consultant regularly. Immunizations. He is up-to-date on his COVID, pneumonia, shingles and influenza vaccinations. Screening blood work before next appointment. 09/28/2023 Gastroesophageal reflux disease, unspecified whether esophagitis present (ICD-10 - K21.9) Mr. Savage is a 68-year-old gentleman with syphilis which was treated, GERD and he sees Dr. Patel at [facility], generalized anxiety disorder, hypertension and erectile dysfunction here for annual physical. Plan is as follows: Hypertension. His diastolic blood pressure is running high in the office today. Cut back on sodium intake. Advised appropriate hydration, cardio exercises and weight loss. Continue current regimen. EKG is normal sinus rhythm at [address]pm with no [address] or T wave changes, no bundle-branch block, normal intervals. Prostate cancer. He is currently on active surveillance by urologist and he is asymptomatic Impaired fasting glucose. Dietary restrictions, regimental exercise and weight loss advised. check A1c. GERD. Stable on Pantoprazole Sodium 40 MG Eye screening. Referred to net finisher. Dental screening. He sees dentist regularly. Colon cancer screening. He had his colonoscopy done every 10 years. Skin cancer screening. He sees his commercial sales consultant regularly. Immunizations. He is up-to-date on his COVID, pneumonia, shingles and influenza vaccinations. Screening blood work before next appointment. General health concerns discussed with patient. Scribe services used to formulate this note under HIPAA compliance and under [place] law mandated for scribe services. Patient aware of service. Verbal consent and written consent taken from the patient. Patient understands and verbalizes understanding of the scribes services and all questions answered regarding scribes services. Patient agrees to use of scribes services. 09/28/2023 Personal history of malignant neoplasm of prostate (ICD-10 - Z85.46) Mr. Savage is a 68-year-old gentleman with syphilis which was treated, GERD and he sees Dr. Patel at [facility], generalized anxiety disorder, hypertension and erectile dysfunction here for annual physical. Plan is as follows: Hypertension. His diastolic blood pressure is running high in the office today. Cut back on sodium intake. Advised appropriate hydration, cardio exercises and weight loss. Continue current regimen. EKG is normal sinus rhythm at [address]pm with no [address] or T wave changes, no bundle-branch block, normal intervals. Prostate cancer. He is currently on active surveillance by urologist and he is asymptomatic Impaired fasting glucose. Dietary restrictions, regimental exercise and weight loss advised. check A1c. GERD. Stable on Pantoprazole Sodium 40 MG Eye screening. Referred to net finisher. Dental screening. He sees dentist regularly. Colon cancer screening. He had his colonoscopy done every 10 years. Skin cancer screening. He sees his commercial sales consultant regularly. Immunizations. He is up-to-date on his COVID, pneumonia, shingles and influenza vaccinations. Screening blood work before next appointment. General health concerns discussed with patient. Scribe services used to formulate this note under HIPAA compliance and under [place] law mandated for scribe services. Patient aware of service. Verbal consent and written consent taken from the patient. Patient understands and verbalizes understanding of the scribes services and all questions answered regarding scribes services. Patient agrees to use of scribes services. 04/04/2024 Impaired fasting glucose (ICD-10 - R73.01) Mr. Savage is a 68-year-old gentleman with syphilis which was treated, GERD and he sees Dr. Patel at [facility], generalized anxiety disorder, hypertension and erectile dysfunction here for f/u. Plan is as follows: Hypertension. His diastolic blood pressure is running high in the office today. Cut back on sodium intake. Advised appropriate hydration, cardio exercises and weight loss. Continue current regimen. Prostate cancer. He is currently on active surveillance by urologist and he is asymptomatic Impaired fasting glucose. Dietary restrictions, regimental exercise and weight loss advised. check A1c. GERD. Stable on Pantoprazole Sodium 40 MG History of syphilis. He saw infectious disease and is treated. He also needs referral to see infectious disease for HIV prevention because his partner is HIV positive. He has tried tablets which did not help and he wants injectables for prevention. Eye screening. Referred to net finisher. Dental screening. He sees dentist regularly. Colon cancer screening. He had his colonoscopy done every 10 years. Skin cancer screening. He sees his commercial sales consultant regularly. Immunizations. He is up-to-date on his COVID, pneumonia, shingles and influenza vaccinations. Screening blood work before next appointment. 04/04/2024 Vitamin D deficiency (ICD-10 - E55.9) Mr. Savage is a 68-year-old gentleman with syphilis which was treated, GERD and he sees Dr. Patel at [facility], generalized anxiety disorder, hypertension and erectile dysfunction here for f/u. Plan is as follows: Hypertension. His diastolic blood pressure is running high in the office today. Cut back on sodium intake. Advised appropriate hydration, cardio exercises and weight loss. Continue current regimen. Prostate cancer. He is currently on active surveillance by urologist and he is asymptomatic Impaired fasting glucose. Dietary restrictions, regimental exercise and weight loss advised. check A1c. GERD. Stable on Pantoprazole Sodium 40 MG History of syphilis. He saw infectious disease and is treated. He also needs referral to see infectious disease for HIV prevention because his partner is HIV positive. He has tried tablets which did not help and he wants injectables for prevention. Eye screening. Referred to net finisher. Dental screening. He sees dentist regularly. Colon cancer screening. He had his colonoscopy done every 10 years. Skin cancer screening. He sees his commercial sales consultant regularly. Immunizations. He is up-to-date on his COVID, pneumonia, shingles and influenza vaccinations. Screening blood work before next appointment. 09/28/2023 Impaired fasting glucose (ICD-10 - R73.01) Mr. Savage is a 68-year-old gentleman with syphilis which was treated, GERD and he sees Dr. Patel at [facility], generalized anxiety disorder, hypertension and erectile dysfunction here for annual physical. Plan is as follows: Hypertension. His diastolic blood pressure is running high in the office today. Cut back on sodium intake. Advised appropriate hydration, cardio exercises and weight loss. Continue current regimen. EKG is normal sinus rhythm at 57 bpm with no acute ST or T wave changes, no bundle-branch block, normal intervals. Prostate cancer. He is currently on active surveillance by urologist and he is asymptomatic Impaired fasting glucose. Dietary restrictions, regimental exercise and weight loss advised. check A1c. GERD. Stable on Pantoprazole Sodium 40 MG Eye screening. Referred to net finisher. Dental screening. He sees dentist regularly. Colon cancer screening. He had his colonoscopy done every 10 years. Skin cancer screening. He sees his commercial sales consultant regularly. Immunizations. He is up-to-date on his COVID, pneumonia, shingles and influenza vaccinations. Screening blood work before next appointment. General health concerns discussed with patient. Scribe services used to formulate this note under HIPAA compliance and under [place] law mandated for scribe services. Patient aware of service. Verbal consent and written consent taken from the patient. Patient understands and verbalizes understanding of the scribes services and all questions answered regarding scribes services. Patient agrees to use of scribes services. Plan Of Treatment Pending Test Test Name Order Date Ultrasound : Abdomen 03/26/2023 ALKALINE PHOSPHATASE 01/01/2022 BILIRUBIN, TOTAL AND DIRECT 01/01/2022 CBC (COMPLETE BLOOD COUNT) WITH DIFF 04/2021 HEPATIC FUNCTION PANEL 01/01/2022 HEPATITIS B SURFACE ANTIGEN 01/01/2022 HEPATITIS B ANTIBODY, QUANT 01/01/2022 Future Test Test Name Order Date Hemoglobin [id number] 04/04/2024 Albumin/Creatinine Ratio,Urine-[id number] Lipid Panel-[id number] 04/04/2024 Comp. Metabolic Panel [id number] 2024 25-Hydroxyvitamin D LCMS D2+[id number] Next Appt Details Provider Name:EMIL HELTON , 09/29/2024 10:00:00 AM, [address] [place] [address], [place], [address], Insurance Providers Payer Name Payer Address Payer Phone Subscriber Number Group Number Insured Name Patient Relationship to Insured Coverage Start Date Coverage End Date [facility] [address] [place] [phone] [id number] Carrington Savage Self - patient is the insured [employer] [place] [address] [place] [address] [phone] [id number] Carrington Savage Self - patient is the insured Medical (General) History Medical History History ICD Code GERD followed by Dr. Patel EGD 2021 gastritis Hiatal hernia Hypertension syphilis, treated by ID Surgical History Surgery Date(Month/Year) lymph node removal groin negative bx varicose veins left leg esr surgery Hospitalization History Reason Date(Month/Year) gerd/gastritis
--- OUTSIDE RECORDS SUMMARY | 2024-06-06 14:54 | XMS_ITS ---
Author Organization [facility] Address [address] [facility] [address] [place] [address] Care Team Providers Care Restaurant Crew Person Name Role Phone EMIL HELTON Primary Care Provider REASON FOR VISIT Referral to Infectious Disease Encounters Encounter Location Date Provider Diagnosis [facility] [address] [facility] [address] [place] [address] 04/15/2024 EMIL HELTON Plan Of Treatment Next Appt Details Provider Name:EMIL HELTON , 09/29/2024 10:00:00 AM, [address] [place] [address] [address], [place], [address], Progress Notes * Elaina BARBAhDOB: 6 (69 yo M)Acc No.[id number]:04/15/2024 Patient:?Carrington BARBA :1955???Age:69 Y???Sex:Male Address:[address], [place] [address] * true * Date:? Generated for Jailene bautista/Сергей/eTransmitting on:?06/06/2024 02:54 PM EDT
--- OUTSIDE RECORDS SUMMARY | 2024-06-06 14:55 | XMS_ITS ---
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 Please call patient to schedule.Leslie Christy 04/15/2024 04:49:26 PM > Referral Priority Routine REASON FOR VISIT 6 month f/u Medications Medication SIG (Take, Route, Frequency, Duration) Notes Start Date End Date Status hydrOXYzine HCl 10 MG TAKE 1 TABLET BY M OUT THREE TIMES A DAY NEEDED for 90 Not-Taking Sucralfate 1 GM 1 tablet on an empty stomach Orally four times a day Not-Taking Tadalafil 10 MG take 1 tablet by charmaine th daily as needed for 30 Active Escitalopram Oxalate 10 MG every day Orally Once a day for 30 days Not-Taking Bactrim DS 800-160 MG 1 tablet Orally Tw ice a day for 7 days 01/13/2023 Not-Taking Lisinopril 20 MG TAKE 1 TABLET BY [...] Once a day for 90 days Active Atenolol 50 MG TAKE 1 TABLET BY CHARMAINE TH EVERY DAY for 90 Active Vital Signs Temperature 96.7 degrees Fahrenheit 04/04/19 25 Oximetry 98 % 04/04/2024 Heart Rate 61 /min 04/04/2024 Blood pressure systolic 130 mm Hg 04/04/19 25 Blood pressure diastolic 80 mm Hg 025 Weight 172.0 lbs 04/04/2024 BMI 24.68 kg/m2 04/04/2024 Height 70 in 04/04/2024 Encounters Encounter Location Date Provider Diagnosis [facility] [address] [address] 04/04/2024 EMIL HELTON Essential (primary) hypertension I10 ; Gastroesophageal reflux disease, unspecified whether esophagitis present K21.9 ; Personal history of malignant neoplasm of prostate Z85.46 ; Impaired fasting glucose R73.01 and Vitamin D deficiency E55.9 Assessments Encounter Date Diagnosis (ICD Code) Assessment Notes Treatment Notes Treatment Clinical Notes Section Notes 04/04/2024 Essential (primary) hypertension (ICD-10 - I10) Mr. Barba is a 68-year-old gentleman with syphilis which was treated, GERD and he sees Dr. Patel at [place], generalized anxiety disorder, hypertension and erectile dysfunction [...] injectables for prevention. Eye screening. Referred to carbon furnace operator helper. Dental screening. He sees dentist regularly. Colon cancer screening. He had his colonoscopy done every 10 years. Skin cancer screening. He sees his aoc director combat operations officer regularly. Immunizations. He is up-to-date on his COVID, pneumonia, shingles and influenza vaccinations. Screening blood work before next appointment. 04/04/2024 Gastroesophageal reflux disease, unspecified whether esophagitis present (ICD-10 - K21.9) Mr. Barba is a 68-year-old gentleman with syphilis which was treated, GERD and he sees Dr. Patel at [facility], generalized anxiety disorder, hypertension and erectile dysfunction [...] injectables for prevention. Eye screening. Referred to carbon furnace operator helper. Dental screening. He sees dentist regularly. Colon cancer screening. He had his colonoscopy done every 10 years. Skin cancer screening. He sees his aoc director combat operations officer regularly. Immunizations. He is up-to-date on his COVID, pneumonia, shingles and influenza vaccinations. Screening blood work before next appointment. 04/04/2024 Personal history of malignant neoplasm of prostate (ICD-10 - Z85.46) Mr. Barba is a 68-year-old gentleman with syphilis which was treated, GERD and he sees Dr. Patel at [place], generalized anxiety disorder, hypertension and erectile dysfunction [...] injectables for prevention. Eye screening. Referred to carbon furnace operator helper. Dental screening. He sees dentist regularly. Colon cancer screening. He had his colonoscopy done every 10 years. Skin cancer screening. He sees his aoc director combat operations officer regularly. Immunizations. He is up-to-date on his COVID, pneumonia, shingles and influenza vaccinations. Screening blood work before next appointment. 04/04/2024 Impaired fasting glucose (ICD-10 - R73.01) Mr. Barba is a 68-year-old gentleman with syphilis which was treated, GERD and he sees Dr. Patel at [facility], generalized anxiety disorder, hypertension and erectile dysfunction [...] injectables for prevention. Eye screening. Referred to carbon furnace operator helper. Dental screening. He sees dentist regularly. Colon cancer screening. He had his colonoscopy done every 10 years. Skin cancer screening. He sees his aoc director combat operations officer regularly. Immunizations. He is up-to-date on his COVID, pneumonia, shingles and influenza vaccinations. Screening blood work before next appointment. 04/04/2024 Vitamin D deficiency (ICD-10 - E55.9) Mr. Barba is a 68-year-old gentleman with syphilis which was treated, GERD and he sees Dr. Patel at [place], generalized anxiety disorder, hypertension and erectile dysfunction [...] injectables for prevention. Eye screening. Referred to carbon furnace operator helper. Dental screening. He sees dentist regularly. Colon cancer screening. He had his colonoscopy done every 10 years. Skin cancer screening. He sees his aoc director combat operations officer regularly. Immunizations. He is up-to-date on his COVID, pneumonia, shingles and influenza vaccinations. Screening blood work before next appointment. Plan Of Treatment Medication Medication Name Sig Start Date Stop Date Notes Ondansetron 4 MG LET 1 TABLET DISSOLV E ON TOP OF THE TONGUE EVERY DAY FOR 30 DAYS Orally Once a day for 30 days Future Test Test Name Order Date Hemoglobin [id number] 04/04/2024 Albumin/Creatinine Ratio,[id number] Lipid [id number] 04/04/2024 Comp. Metabolic Panel [id number] 2024 25-Hydroxyvitamin D LCMS D2+[id number] Referrals Referral Date Details 04/04/2024 04/04/2024, HIV Prev ention therapy cannot tolerate pills and wants injectable - hx of syphillis- [place] Next Appt Details Follow Up: 6 Months- [place] son: Provider Name:EMIL HELTON , 09/29/2024 10:00:00 AM, [address] [place] [address] [address], [place], [address], Progress Notes * Elaina BARBAhDOB: [birth year] (69 yo M)Acc No.[id number]:04/04/2024 Progress Notes Patient:?Carrington BARBA Provider:?EMIL HELTON MD :1955???Age:69 Y???Sex:Male Efrain e:04/04/2024 Address:[facility] [address], [place], [place] Subjective: * Chief Complaints: * ???6 month f/u * HPI: ???Internal Medicine:?Mr. Barba is a 68-year-old gentleman with syphilis which was treated, GERD and he sees Dr. Patel at [place], generalized anxiety disorder, hypertension and erectile dysfunction here for follow-up He is in his usual state of health. He wants referral to infectious disease who can do an injectable prophylactic for HIV because his partner is HIV positive.?He is physically active and exercises regularly. He gained 2 lbs since last visit, which is calorie weight. He has been drinking beer off and on. He denies anxiety or depression. He sleeps well, appetite is good. No GI or symptoms. He denies any other active issues or concerns. * ROS:?General/Constitutional:?Overall health?Good.?Change in appetite?denies.?Chills?denies.?Fever?denies.?Night sweats?denies.?Sleep disturbance?denies.?Weight gain?admits, 6?pounds.?Weight loss?denies.?Neurologic:?Difficulty speaking?denies.?Dizziness?denies.?Gait abnormality?denies.?Headache?denies.?Loss of strength?denies.?Memory loss?denies.?Seizures?denies.?Tingling/Numbness?denies .?Ophthalmologic:?Blurred vision?denies.?Discharge?denies.?Dry eye?denies.?Red eye?denies.?ENT:?Change in Voice?Denies.?Cold Symptoms?Denies.?Cough?Denies.?Dizziness?Denies.?Nasal Congestion?Denies.?Otalgia?Denies.?postnasal drip?Denies.?Blocked ear?denies.?Nosebleed?denies.?Snoring?denies.?Cardiovascular:?Diaphoresis?Denies.?Pedal Edema?Denies.?PND (Paroxsymal nocturnal dyspnea)?Denies.?Chest pain?denies.?Difficulty laying flat?denies.?Dyspnea on exertion?denies.?Heart murmur?denies.?Orthopnea?denies.?Respiratory:?Snoring?denies.?Asthma?denies.?Cough?denies.?Shortness of breath with exertion?denies.?Sputum production?denies.?Wheezing?denies.?Gastrointestinal:?Change in bowel habits?denies.?Constipation?denies.?Decreased appetite?denies.?Diarrhea?denies.?Heartburn?denies.?Nausea?denies.?Vomiting?cheikh es.?Musculoskeletal:?tingling/numbness?Denies.?myalgias?Denies.?Joint Swelling?Denies.?extremeties?normal.?Arthritis?denies.?Back problems?denies.?Carpal tunnel?denies.?Joint stiffness?denies.?Muscle aches?denies.?Endocrine:?Bowel Changes?Denies.?Breast Discharge?Denies.?poor libido?Denies.?Cold intolerance?denies.?Excessive sweating?denies.?Excessive thirst?denies.?Frequent urination?denies.?Thyroid problems?denies.?Skin:?Bruising?Denies.?Eczema?denies.?Hair changes?denies.?Rash?denies.?Skin lesion(s)?denies.?Psychiatric:?Anxiety?denies.?Depressed mood?denies.?Difficulty sleeping?denies.?Nervous breakdown?denies.?Substance abuse?denies.?Urology:?abnormal menstrual bleeding?denies.?blood in urine?denies.?burning on urination?denies.?difficulty urinating?denies.?discharge?denies.?dysuria?denies.? * Medical History:? * Surgical History:?lymph node removal groin negative bx varicose veins left leg esr surgery * Hospitalization/Major Diagno stic Procedure:?gerd/gastritis * Family History:?Father: dece ased, diagnosed with Stroke.?Mother: , diagnosed with Cancer.? liver. * Social History:?Miscellaneous:?Living with: significant other. ?Marital status: in relationship with male partner. ?Occupation: Retired. * Medications:?TakingAtenolol 50 MG Tablet TAKE 1 TABLET BY MOUTH EVERY DAY Lisinopril 20 MG Tablet TAKE 1 TABLET BY MOUTH EVERY DAY IN THE MORNING Ondansetron 4 MG Tablet Disintegrating LET 1 TABLET DISSOLVE ON TOP OF THE TONGUE EVERY DAY FOR 30 DAYS Pantoprazole Sodium 40 MG Tablet Delayed Release 1 tablet Orally Once a day amLODIPine Besylate 5 MG Tablet TAKE 1 TABLET BY MOUTH EVERY DAY Tadalafil 10 MG Tablet take 1 tablet by mouth daily as needed Taking Atenolol 50 MG Tablet TAKE 1 TABLET BY MOUTH EVERY DAY Taking Lisinopril 20 MG Tablet TAKE 1 TABLET BY MOUTH EVERY DAY IN THE MORNING Taking Ondansetron 4 MG Tablet Disintegrating LET 1 TABLET DISSOLVE ON TOP OF THE TONGUE EVERY DAY FOR 30 DAYS Taking Pantoprazole Sodium 40 MG Tablet Delayed Release 1 tablet Orally Once a day Taking amLODIPine Besylate 5 MG Tablet TAKE 1 TABLET BY MOUTH EVERY DAY Taking Tadalafil 10 MG Tablet take 1 tablet by mouth daily as needed Not-TakingSucralfate 1 GM Tablet 1 tablet on an empty stomach Orally four times a day Bactrim DS 800-160 MG Tablet 1 tablet Orally Twice a day Escitalopram Oxalate 10 MG Tablet every day Orally Once a day hydrOXYzine HCl 10 MG Tablet TAKE 1 TABLET BY MOUTH THREE TIMES A DAY NEEDED Medication List reviewed and reconciled with the patientNot-Taking Sucralfate 1 GM Tablet 1 tablet on an empty stomach Orally four times a day Not-Taking Bactrim DS 800-160 MG Tablet 1 tablet Orally Twice a day Not-Taking Escitalopram Oxalate 10 MG Tablet every day Orally Once a day Not-Taking hydrOXYzine HCl 10 MG Tablet TAKE 1 TABLET BY MOUTH THREE TIMES A DAY NEEDED Medication List reviewed and reconciled with the patient * Allergies:?Doxycycline: upse t stomach - Allergyno[Allergies Verified] Objective: * Vitals:?Temp:96.7F, Oxygen s at %:98%, HR:61/min, BP:130/80mm Hg, Wt:172.0lbs, BMI:24.68Index, Ht: 70 in. * ???Past Orders: ???Lab:Albumin/Creatinine Ra domitila,[id number] (Order Date - 09/28/2023) (Collection Date & Time - 10/06/2023 07:09 AM) ? Value Reference Range ?Creatinine, Urine 108.4 No t Estab. - mg/dL ?Albumin, Urine 38.4 Not E stab. - ug/mL ?Alb/Creat Ratio 35 H 0-29 - mg/g creat ???Lab:Comp. Metabolic Panel [id number] (Order Date - 09/28/2023) (Collection Date & Time - 10/06/2023 07:09 AM) ? Value Reference Range ?Glucose 108 H 70-99 - mg/d L ?BUN 19 8-27 - mg/dL ?Creatinine 0.95 0.76-1.27 - mg/dL ?BUN/Creatinine Ratio 20 10-24 - ?Sodium 139 134-144 - mmo l/L ?Potassium 4.3 3.5-5.2 - mmol/L ?Chloride 103 96-106 - mm ol/L ?Carbon Dioxide, Total 21 20-29 - mmol/L ?Calcium 9.2 8.6-10.2 - m g/dL ?Protein, Total 6.5 6.0-8 .5 - g/dL ?Albumin 4.4 3.9-4.9 - g/ dL ?Globulin, Total 2.1 1.5- 4.5 - g/dL ?Bilirubin, Total 0.7 0.0 -1.2 - mg/dL ?Alkaline Phosphatase 62 44-121 - IU/L ?AST (SGOT) 19 0-40 - IU /L ?ALT (SGPT) 15 0-44 - IU /L ?eGFR 88 >59 - mL/min/1. 73 ???Lab:Lipid Panel-[id number] (O rder Date - 09/28/2023) (Collection Date & Time - 10/06/2023 07:09 AM) ? Value Reference Range ?Cholesterol, Total 169 1 00-199 - mg/dL ?Triglycerides 108 0-149 - mg/dL ?HDL Cholesterol 35 L >39 - mg/dL ?VLDL Cholesterol Rich 20 5-40 - mg/dL ?LDL Chol Calc (NIH) 114 H 0-99 - mg/dL ???Lab:Hemoglobin [id number] (Order Date - 09/28/2023) (Collection Date & Time - 10/06/2023 07:09 AM) ? Value Reference Range ?Hemoglobin A1c/ Hemoglobin total 5.6 4.8-5.6 - % * Examination: ???General Examination: ?Psychiatry?Normal.?GENERAL APPEARANCE:?Well developed, well nourished, in no acute distress.?MUSCULOSKELETAL:?normal.?HEAD:?Normocephalic, atraumatic.?EYES:?Pupils equal, round, reactive to light and accommodation, sclera non-icteric.?EARS:?Normal.?ORAL CAVITY:?Normal.?THROAT:?Clear.?OROPHARYNX?Normal.?SINUSES?Normal.?NECK/THYROID:?Neck supple, full range of motion, no cervical lymphadenopathy.?SKIN:?Warm and dry, no suspicious lesions.?HEART:?Normal.?LUNGS:?Normal.?BREASTS:?__.?ABDOMEN:?Soft, nontender, nondistended, bowel sounds present, normal.?EXTREMITIES:?Normal.?PERIPHERAL PULSES:?Normal.?NEUROLOGIC:?nonfocal, alert and oriented.?FEMALE GENITOURINARY:?__.?MALE GENITOURINARY:?__.?PODIATRIC:?Normal.?Hand Spray Operator? .? Assessment: * Assessment: 1.?Essential (primary) hyper tension - I10 (Primary)???2.?Gastroesophageal reflux disease, unspecified whether esophagitis present - K21.9???3.?Personal history of malignant neoplasm of prostate - Z85.46???4.?Impaired fasting glucose - R73.01???5.?Vitamin D deficiency - E55.9??? Mr. Barba is a 68-year-old gentleman with syphilis which was treated, GERD and he sees Dr. Patel at [facility], generalized anxiety disorder, hypertension and erectile dysfunction [...] on Pantoprazole Sodium 40 MG History of syphilis.? He saw infectious disease and is treated.? He also needs referral to see infectious disease for HIV prevention because his partner is HIV positive.? He has tried tablets which did not help and he wants injectables for prevention. Eye screening. Referred to carbon furnace operator helper. Dental screening. He sees dentist regularly. Colon cancer screening. He had his colonoscopy done every 10 years. Skin cancer screening. He sees his aoc director combat operations officer regularly. Immunizations. He is up-to-date on his COVID, pneumonia, shingles and influenza vaccinations. Screening blood work before next appointment. Plan: * Treatment: 2.?Impaired fasting glucose?LAB: Hemoglobin [id number] (Ordered for 04/04/2024) 3.?Vitamin D deficiency?LAB: 25-Hydroxyvitamin D LCMS D2+[id number] (Ordered for 04/04/2024) 4.?Others? Refill Ondansetron Tablet Disintegrating, 4 MG, LET 1 TABLET DISSOLVE ON TOP OF THE TONGUE EVERY DAY FOR 30 DAYS, Orally, Once a day, 30 days, 30, Refills 5.? Referral To:Infectious Disease ?Reason:HIV Prevention therapy cannot tolerate pills and wants injectable - hx of syphillis- [place] * Procedure Codes:?3079F DIAST BP 80-89 MM [id number] SYST BP GE 130 - 139MM [place] * Follow Up:?6 Months- AW * * Sign off status: Completed true * Provider:?EMIL HELTON MD Date:?04/04 Generated for Jailene bautista/Сергей/Oneidasmitting on:?06/06/2024 02:54 PM EDT History and Physical Notes * HPI (History of Present Illness) Category Sub-Category Detail Notes Category Not es Internal Medicine Mr. Barba is a 68-year-old gentleman with syphilis which was treated, GERD and he sees Dr. Patel at [place], generalized anxiety disorder, hypertension and erectile dysfunction here for follow-up He is in his usual state of health. He wants referral to infectious disease who can do an injectable prophylactic for HIV because his partner is HIV positive. He is physically active and exercises regularly. He gained 2 lbs since last visit, which is calorie weight. He has been drinking beer off and on. He denies anxiety or depression. He sleeps well, appetite is good. No GI or symptoms. He denies any other active issues or concerns. Examination Category Sub-Category Detail Notes Category Not es General Examination GENERAL APPEARANCE: Well dev eloped, well nourished, in no acute distress HEAD: Normocephalic, atrau matic EYES: Pupils equal, round, reactive to light and accommodation, sclera non-icteric EARS: Normal THROAT: Clear NECK/THYROID: Neck supple, full ra nge of motion, no cervical lymphadenopathy HEART: Normal LUNGS: Normal ABDOMEN: Soft, nontender, non distended, bowel sounds present, normal NEUROLOGIC: nonfocal, alert and oriented SKIN: Warm and dry, no tabatha picious lesions EXTREMITIES: Normal PERIPHERAL PULSES: Normal BREASTS: __ MUSCULOSKELETAL: normal MALE GENITOURINARY: __ FEMALE GENITOURINARY: __ ORAL CAVITY: Normal PODIATRIC: Normal Psychiatry Normal OROPHARYNX Normal SINUSES Normal Hand Spray Operator Consultation Request Notes Referral Date Referring Provider Referred Provider Not ewa 04/04/2024 EMIL HELTON , HIV Prevention therapy cannot tolerate pills and wants injectable - hx of syphillis- [place]
== END 2024-06-06 13:19 | disposition home or self-care (01) ==
LOC: HO.HGS 12:59
PROVIDERS: PCP Hospitalist; Visit Provider Surgery
DX: Z86.004 Personal history of in-situ neoplasm of other and unspecified digestive organs (principal)
CPT/HCPCS: 46600; 99213

== ENCOUNTER → 2024-06-06 12:59 | Outpatient (BNVA) | payer MEDICARE, MEDICAID, SELFPAY | PROVIDERS: PCP Hospitalist; Visit Provider Surgery | DX: Z87.19 Personal history of other diseases of the digestive system (principal) | CPT/HCPCS: 46600; 99212 ==